=== PATIENT | male | born 1995 | race Caucasian/White ===

== ENCOUNTER 2017-11-24 03:14 | Outpatient (RCR) | payer OTHER, SELFPAY ==
[2017-11-25] MEDS: Normal Saline Flush 10 ML SYR IVP (13:42)
[2017-11-25] MEDS: Heparin 500 UNITS/5 ML SYRINGE IV (13:42)
[2017-11-25 14:02] LABS: Abs Immature Grans 0.01 k/cumm (0.0-0.09); Absolute Basophil Count 0.01 k/cumm (0.0-0.2); Absolute Eosinophil Count 0.09 k/cumm (0.0-0.7); Absolute Lymphocyte Count 1.13 k/cumm (1.2-3.4); Absolute Monocyte Count 1.58 k/cumm (0.11-0.7); Absolute Neutrophil Count 2.09 k/cumm (1.2-6.7); Basophils % 0.2; Eosinophils % 1.8; HCT 32.2 % (40.0-50.0); HGB 10.9 g/dL (13.5-17.5); Immature Grans % 0.2; Mean Corp. HGB Concentration 33.9 g/dL (32.0-36.0); Mean Corpuscular Hemoglobin 32.8 pg (27.0-33.0); Monocytes % 32.2; Neutrophils % 42.6; RBC 3.32 m/cumm (4.50-6.00); RBC Distribution Width 22.9 % (11.8-14.1); White Blood Cell Count 4.91 k/cumm (4.4-10.8)
[2017-11-25 14:43] LABS: Platelet Count 80 x1000/uL (130-400)
[2017-11-25 14:44] LABS: Anisocytosis 2+; Diff Comment Agrees w/ Instrument; Macrocytosis 1+; Microcytosis 1+
[2017-11-25 14:45] LABS: Poikilocytes 1+
[2017-11-30] MEDS: Normal Saline Flush 10 ML SYR IVP (10:10)
[2017-11-30] MEDS: Heparin 500 UNITS/5 ML SYRINGE IV (10:21)
[2017-11-30 10:34] LABS: Abs Immature Grans 0.01 k/cumm (0.0-0.09); Absolute Basophil Count 0.01 k/cumm (0.0-0.2); Absolute Eosinophil Count 0.09 k/cumm (0.0-0.7); Absolute Lymphocyte Count 0.86 k/cumm (1.2-3.4); Absolute Monocyte Count 0.84 k/cumm (0.11-0.7); Absolute Neutrophil Count 2.25 k/cumm (1.2-6.7); Basophils % 0.2; Eosinophils % 2.2; HCT 35.5 % (40.0-50.0); HGB 12.1 g/dL (13.5-17.5); Immature Grans % 0.2; Lymphocytes % 21.2; Mean Corp. HGB Concentration 34.1 g/dL (32.0-36.0); Mean Corpuscular Hemoglobin 33.2 pg (27.0-33.0); Mean Corpuscular Volume 97.5 fL (80-95); Mean Platelet Volume 9.5 fL (8.0-11.0); Monocytes % 20.7; Neutrophils % 55.5; RBC 3.64 m/cumm (4.50-6.00); White Blood Cell Count 4.06 k/cumm (4.4-10.8)
[2017-11-30 10:57] LABS: Anisocytosis 3+; Basophilic Stippling Present; Diff Comment RBC Morph Reviewed; Microcytosis 2+; Platelet Count 113 x1000/uL (130-400); Poikilocytes 1+; Polychromasia Present
[2017-12-07 10:02] LABS: Abs Immature Grans 0.01 k/cumm (0.0-0.09); Absolute Basophil Count 0.01 k/cumm (0.0-0.2); Absolute Eosinophil Count 0.13 k/cumm (0.0-0.7); Absolute Lymphocyte Count 0.78 k/cumm (1.2-3.4); Absolute Monocyte Count 0.69 k/cumm (0.11-0.7); Absolute Neutrophil Count 2.65 k/cumm (1.2-6.7); Basophils % 0.2; HCT 36.5 % (40.0-50.0); HGB 12.4 g/dL (13.5-17.5); Immature Grans % 0.2; Lymphocytes % 18.3; Mean Corpuscular Hemoglobin 33.3 pg (27.0-33.0); Mean Corpuscular Volume 98.1 fL (80-95); Mean Platelet Volume 9.5 fL (8.0-11.0); Monocytes % 16.2; Neutrophils % 62.1; Platelet Count 130 x1000/uL (130-400); RBC 3.72 m/cumm (4.50-6.00); White Blood Cell Count 4.27 k/cumm (4.4-10.8)
[2017-12-07 10:15] LABS: ALT 32 U/L (12-78); AST 25 U/L (15-37); Albumin 3.9 g/dL (3.4-5.0); Alkaline Phosphatase 159 U/L (46-116); Anion Gap 7.8 mmol/L (3-11); BUN 9 mg/dL (7-18); Bilirubin, Total 0.9 mg/dL (0.2-1.0); CO2 29.2 mmol/L (21.0-32.0); CREATININE 0.83 mg/dL (0.70-1.30); Calcium 9.4 mg/dL (8.5-10.1); Chloride 104 mmol/L (98-107); Glucose 141 mg/dL (70-100); Potassium 3.7 mmol/L (3.5-5.1); Sodium 141 mmol/L (136-145); Total Protein 7.2 g/dL (6.4-8.2)
[2017-12-07 10:31] LABS: Anisocytosis 2+; Diff Comment RBC Morph Reviewed; Poikilocytes 1+; Polychromasia Present
[2017-12-12] MEDS: Normal Saline Flush 10 ML SYR IVP (11:10)
[2017-12-12] MEDS: Heparin 500 UNITS/5 ML SYRINGE IV (11:10)
[2017-12-12 11:24] LABS: Abs Immature Grans 0.01 k/cumm (0.0-0.09); Absolute Basophil Count 0.02 k/cumm (0.0-0.2); Absolute Eosinophil Count 0.14 k/cumm (0.0-0.7); Absolute Lymphocyte Count 1.06 k/cumm (1.2-3.4); Absolute Monocyte Count 0.56 k/cumm (0.11-0.7); Basophils % 0.5; Eosinophils % 3.6; HCT 38.9 % (40.0-50.0); HGB 13.2 g/dL (13.5-17.5); Immature Grans % 0.3; Lymphocytes % 27.2; Mean Corp. HGB Concentration 33.9 g/dL (32.0-36.0); Mean Corpuscular Hemoglobin 33.2 pg (27.0-33.0); Mean Corpuscular Volume 97.7 fL (80-95); Mean Platelet Volume 8.9 fL (8.0-11.0); Monocytes % 14.4; Platelet Count 136 x1000/uL (130-400); RBC 3.98 m/cumm (4.50-6.00); White Blood Cell Count 3.89 k/cumm (4.4-10.8)
[2017-12-12 11:38] LABS: ALT 34 U/L (12-78); AST 29 U/L (15-37); Alkaline Phosphatase 168 U/L (46-116); Anion Gap 7.6 mmol/L (3-11); BUN 13 mg/dL (7-18); CO2 28.4 mmol/L (21.0-32.0); CREATININE 0.82 mg/dL (0.70-1.30); Calcium 9.3 mg/dL (8.5-10.1); Chloride 102 mmol/L (98-107); Glucose 93 mg/dL (70-100); Potassium 3.9 mmol/L (3.5-5.1); Sodium 138 mmol/L (136-145); Total Protein 7.4 g/dL (6.4-8.2)
[2017-12-22] MEDS: Heparin 500 UNITS/5 ML SYRINGE IV (11:15)
[2017-12-22] MEDS: Normal Saline Flush 10 ML SYR IVP (11:15)
[2017-12-22 11:31] LABS: Abs Immature Grans 0.01 k/cumm (0.0-0.09); Absolute Basophil Count 0.01 k/cumm (0.0-0.2); Absolute Lymphocyte Count 1.23 k/cumm (1.2-3.4); Absolute Monocyte Count 0.99 k/cumm (0.11-0.7); Absolute Neutrophil Count 2.76 k/cumm (1.2-6.7); Basophils % 0.2; Eosinophils % 3.8; HCT 40.6 % (40.0-50.0); HGB 13.8 g/dL (13.5-17.5); Immature Grans % 0.2; Lymphocytes % 23.7; Mean Corpuscular Hemoglobin 33.2 pg (27.0-33.0); Mean Corpuscular Volume 97.6 fL (80-95); Neutrophils % 53.1; Platelet Count 127 x1000/uL (130-400); RBC 4.16 m/cumm (4.50-6.00); RBC Distribution Width 15.9 % (11.8-14.1)
[2017-12-22 11:48] LABS: ALT 35 U/L (12-78); AST 31 U/L (15-37); Albumin 3.8 g/dL (3.4-5.0); Alkaline Phosphatase 165 U/L (46-116); Anion Gap 7.9 mmol/L (3-11); BUN 9 mg/dL (7-18); Bilirubin, Total 0.8 mg/dL (0.2-1.0); CO2 27.1 mmol/L (21.0-32.0); CREATININE 0.88 mg/dL (0.70-1.30); Chloride 102 mmol/L (98-107); Glucose 110 mg/dL (70-100); Magnesium 1.6 mg/dL (1.8-2.4); Potassium 3.5 mmol/L (3.5-5.1); Sodium 137 mmol/L (136-145); Total Protein 7.2 g/dL (6.4-8.2)
== END 2017-12-23 ==
LOC: INF 11-25 00:25
PROVIDERS: PCP Pediatrics; Visit Provider Internal Medicine
DX: C91.01 Acute lymphoblastic leukemia, in remission (principal); Z45.2 Encounter for adjustment and management of vascular access device
CPT/HCPCS: 36591; 80053; 86850; 86900; 86901; 83735; 85025

== ENCOUNTER 2018-01-18 01:39 | Outpatient (RCR) | payer OTHER, SELFPAY ==
[2017-12-27] MEDS: Normal Saline Flush 10 ML SYR IVP (11:10)
[2017-12-27] MEDS: Heparin 500 UNITS/5 ML SYRINGE IV (11:10)
[2017-12-27 11:39] LABS: Absolute Basophil Count 0.01 k/cumm (0.0-0.2); Absolute Eosinophil Count 0.18 k/cumm (0.0-0.7); Absolute Monocyte Count 0.23 k/cumm (0.11-0.7); Absolute Neutrophil Count 1.72 k/cumm (1.2-6.7); Basophils % 0.3; Eosinophils % 5.6; HCT 40.2 % (40.0-50.0); HGB 13.9 g/dL (13.5-17.5); Mean Corp. HGB Concentration 34.6 g/dL (32.0-36.0); Mean Corpuscular Hemoglobin 32.6 pg (27.0-33.0); Mean Corpuscular Volume 94.4 fL (80-95); Mean Platelet Volume 9.1 fL (8.0-11.0); Monocytes % 7.1; Platelet Count 130 x1000/uL (130-400); RBC 4.26 m/cumm (4.50-6.00); RBC Distribution Width 14.7 % (11.8-14.1); White Blood Cell Count 3.24 k/cumm (4.4-10.8)
[2017-12-27 11:52] LABS: ALT 49 U/L (12-78); AST 38 U/L (15-37); Albumin 3.8 g/dL (3.4-5.0); Alkaline Phosphatase 155 U/L (46-116); BUN 14 mg/dL (7-18); CREATININE 0.89 mg/dL (0.70-1.30); Calcium 9.2 mg/dL (8.5-10.1); Chloride 102 mmol/L (98-107); Glucose 144 mg/dL (70-100); Magnesium 1.7 mg/dL (1.8-2.4); Potassium 3.6 mmol/L (3.5-5.1); Sodium 139 mmol/L (136-145)
[2017-12-30] MEDS: Heparin 500 UNITS/5 ML SYRINGE IV (11:10)
[2017-12-30] MEDS: Normal Saline Flush 10 ML SYR IVP (11:10)
[2017-12-30 11:36] LABS: Abs Immature Grans 0.01 k/cumm (0.0-0.09); Absolute Basophil Count 0.02 k/cumm (0.0-0.2); Absolute Eosinophil Count 0.15 k/cumm (0.0-0.7); Absolute Lymphocyte Count 0.94 k/cumm (1.2-3.4); Absolute Monocyte Count 0.56 k/cumm (0.11-0.7); Absolute Neutrophil Count 1.55 k/cumm (1.2-6.7); Basophils % 0.6; Eosinophils % 4.6; HCT 39.2 % (40.0-50.0); HGB 13.6 g/dL (13.5-17.5); Immature Grans % 0.3; Lymphocytes % 29.1; Mean Corp. HGB Concentration 34.7 g/dL (32.0-36.0); Mean Corpuscular Hemoglobin 32.7 pg (27.0-33.0); Mean Corpuscular Volume 94.2 fL (80-95); Mean Platelet Volume 9.3 fL (8.0-11.0); Monocytes % 17.3; Neutrophils % 48.1; RBC 4.16 m/cumm (4.50-6.00); RBC Distribution Width 14.3 % (11.8-14.1); White Blood Cell Count 3.23 k/cumm (4.4-10.8)
[2017-12-30 12:02] LABS: Diff Comment PLT Morph Reviewed; Platelet Count 95 x1000/uL (130-400); RBC Morphology Normal
[2018-01-04] MEDS: Normal Saline Flush 10 ML SYR IVP (11:10)
[2018-01-04] MEDS: Heparin 500 UNITS/5 ML SYRINGE IV (11:10)
[2018-01-04 11:34] LABS: Absolute Eosinophil Count 0.18 k/cumm (0.0-0.7); Absolute Lymphocyte Count 1.08 k/cumm (1.2-3.4); Absolute Monocyte Count 0.34 k/cumm (0.11-0.7); Absolute Neutrophil Count 2.47 k/cumm (1.2-6.7); Eosinophils % 4.4; HCT 39.2 % (40.0-50.0); HGB 13.9 g/dL (13.5-17.5); Lymphocytes % 26.5; Mean Corp. HGB Concentration 35.5 g/dL (32.0-36.0); Mean Corpuscular Volume 93.1 fL (80-95); Mean Platelet Volume 8.9 fL (8.0-11.0); Monocytes % 8.4; Neutrophils % 60.7; Platelet Count 105 x1000/uL (130-400); RBC 4.21 m/cumm (4.50-6.00); RBC Distribution Width 14.2 % (11.8-14.1); White Blood Cell Count 4.07 k/cumm (4.4-10.8)
[2018-01-04 11:46] LABS: ALT 66 U/L (12-78); AST 48 U/L (15-37); Albumin 3.9 g/dL (3.4-5.0); Alkaline Phosphatase 164 U/L (46-116); Anion Gap 8.8 mmol/L (3-11); BUN 11 mg/dL (7-18); CO2 27.2 mmol/L (21.0-32.0); CREATININE 0.85 mg/dL (0.70-1.30); Calcium 9.2 mg/dL (8.5-10.1); Chloride 103 mmol/L (98-107); Glucose 156 mg/dL (70-100); Magnesium 1.7 mg/dL (1.8-2.4); Potassium 3.7 mmol/L (3.5-5.1); Sodium 139 mmol/L (136-145); Total Protein 7.3 g/dL (6.4-8.2)
[2018-01-09] MEDS: Heparin 500 UNITS/5 ML SYRINGE IV (11:05)
[2018-01-09] MEDS: Normal Saline Flush 10 ML SYR IVP (11:05)
[2018-01-09 11:53] LABS: Absolute Basophil Count 0.01 k/cumm (0.0-0.2); Absolute Eosinophil Count 0.14 k/cumm (0.0-0.7); Absolute Lymphocyte Count 0.96 k/cumm (1.2-3.4); Absolute Monocyte Count 0.41 k/cumm (0.11-0.7); Absolute Neutrophil Count 2.05 k/cumm (1.2-6.7); Basophils % 0.3; Eosinophils % 3.9; HCT 35.1 % (40.0-50.0); Lymphocytes % 26.9; Mean Corp. HGB Concentration 34.2 g/dL (32.0-36.0); Mean Corpuscular Hemoglobin 32.2 pg (27.0-33.0); Mean Corpuscular Volume 94.1 fL (80-95); Mean Platelet Volume 8.7 fL (8.0-11.0); Monocytes % 11.5; Neutrophils % 57.4; RBC 3.73 m/cumm (4.50-6.00); RBC Distribution Width 13.8 % (11.8-14.1); White Blood Cell Count 3.57 k/cumm (4.4-10.8)
[2018-01-09 11:59] LABS: ALT 46 U/L (12-78); AST 28 U/L (15-37); Albumin 3.7 g/dL (3.4-5.0); Alkaline Phosphatase 159 U/L (46-116); Anion Gap 5.5 mmol/L (3-11); BUN 12 mg/dL (7-18); Bilirubin, Total 0.6 mg/dL (0.2-1.0); CO2 29.5 mmol/L (21.0-32.0); CREATININE 0.71 mg/dL (0.70-1.30); Calcium 8.9 mg/dL (8.5-10.1); Chloride 105 mmol/L (98-107); Glucose 111 mg/dL (70-100); Potassium 3.8 mmol/L (3.5-5.1); Sodium 140 mmol/L (136-145); Total Protein 6.6 g/dL (6.4-8.2)
[2018-01-09 12:04] LABS: Platelet Count 77 x1000/uL (130-400)
[2018-01-11] MEDS: Heparin 500 UNITS/5 ML SYRINGE IV (11:10)
[2018-01-11] MEDS: Normal Saline Flush 10 ML SYR IVP (11:10)
[2018-01-11 11:47] LABS: Abs Immature Grans 0.01 k/cumm (0.0-0.09); Absolute Eosinophil Count 0.13 k/cumm (0.0-0.7); Absolute Lymphocyte Count 0.94 k/cumm (1.2-3.4); Absolute Monocyte Count 0.42 k/cumm (0.11-0.7); Absolute Neutrophil Count 2.54 k/cumm (1.2-6.7); Eosinophils % 3.2; HCT 37.1 % (40.0-50.0); HGB 12.7 g/dL (13.5-17.5); Immature Grans % 0.2; Lymphocytes % 23.3; Mean Corp. HGB Concentration 34.2 g/dL (32.0-36.0); Mean Corpuscular Hemoglobin 32.4 pg (27.0-33.0); Mean Corpuscular Volume 94.6 fL (80-95); Mean Platelet Volume 9.7 fL (8.0-11.0); Monocytes % 10.4; Neutrophils % 62.9; RBC 3.92 m/cumm (4.50-6.00); White Blood Cell Count 4.04 k/cumm (4.4-10.8)
[2018-01-11 12:05] LABS: Platelet Count 90 x1000/uL (130-400)
[2018-01-11 12:12] LABS: Polychromasia Present; RBC Morphology Normal
[2018-01-11 16:42] LABS: ALT 44 U/L (12-78); AST 27 U/L (15-37); Albumin 3.9 g/dL (3.4-5.0); Alkaline Phosphatase 157 U/L (46-116); Anion Gap 10.5 mmol/L (3-11); BUN 10 mg/dL (7-18); Bilirubin, Total 0.5 mg/dL (0.2-1.0); CO2 27.5 mmol/L (21.0-32.0); CREATININE 0.77 mg/dL (0.70-1.30); Calcium 8.9 mg/dL (8.5-10.1); Chloride 104 mmol/L (98-107); Glucose 84 mg/dL (70-100); Potassium 3.7 mmol/L (3.5-5.1); Sodium 142 mmol/L (136-145); Total Protein 6.8 g/dL (6.4-8.2)
[2018-01-16] MEDS: Normal Saline Flush 10 ML SYR IVP (11:10)
[2018-01-16] MEDS: Heparin 500 UNITS/5 ML SYRINGE IV (11:10)
[2018-01-16 11:48] LABS: Absolute Basophil Count 0.01 k/cumm (0.0-0.2); Absolute Lymphocyte Count 0.98 k/cumm (1.2-3.4); Absolute Monocyte Count 0.31 k/cumm (0.11-0.7); Absolute Neutrophil Count 1.93 k/cumm (1.2-6.7); Basophils % 0.3; HCT 37.7 % (40.0-50.0); HGB 12.9 g/dL (13.5-17.5); Lymphocytes % 29.4; Mean Corp. HGB Concentration 34.2 g/dL (32.0-36.0); Mean Corpuscular Hemoglobin 32.4 pg (27.0-33.0); Mean Corpuscular Volume 94.7 fL (80-95); Mean Platelet Volume 9.6 fL (8.0-11.0); Monocytes % 9.3; RBC 3.98 m/cumm (4.50-6.00); RBC Distribution Width 13.8 % (11.8-14.1); White Blood Cell Count 3.33 k/cumm (4.4-10.8)
[2018-01-16 12:05] LABS: ALT 76 U/L (12-78); AST 38 U/L (15-37); Albumin 3.8 g/dL (3.4-5.0); Alkaline Phosphatase 164 U/L (46-116); Anion Gap 9.4 mmol/L (3-11); BUN 10 mg/dL (7-18); Bilirubin, Total 0.8 mg/dL (0.2-1.0); CO2 28.6 mmol/L (21.0-32.0); CREATININE 0.82 mg/dL (0.70-1.30); Calcium 9.2 mg/dL (8.5-10.1); Chloride 102 mmol/L (98-107); Glucose 153 mg/dL (70-100); Potassium 3.7 mmol/L (3.5-5.1); Sodium 140 mmol/L (136-145); Total Protein 6.8 g/dL (6.4-8.2)
[2018-01-16 12:15] LABS: Platelet Count 92 x1000/uL (130-400)
[2018-01-18] MEDS: Normal Saline Flush 10 ML SYR IVP (10:35)
[2018-01-18] MEDS: Heparin 500 UNITS/5 ML SYRINGE IV (10:35)
[2018-01-18 11:13] LABS: Absolute Lymphocyte Count 0.94 k/cumm (1.2-3.4); Absolute Monocyte Count 0.29 k/cumm (0.11-0.7); Absolute Neutrophil Count 1.64 k/cumm (1.2-6.7); Eosinophils % 3.4; HCT 37.1 % (40.0-50.0); HGB 12.8 g/dL (13.5-17.5); Lymphocytes % 31.6; Mean Corp. HGB Concentration 34.5 g/dL (32.0-36.0); Mean Corpuscular Hemoglobin 32.7 pg (27.0-33.0); Mean Corpuscular Volume 94.6 fL (80-95); Mean Platelet Volume 9.3 fL (8.0-11.0); Monocytes % 9.8; Neutrophils % 55.2; RBC 3.92 m/cumm (4.50-6.00); RBC Distribution Width 13.7 % (11.8-14.1); White Blood Cell Count 2.97 k/cumm (4.4-10.8)
[2018-01-18 11:25] LABS: ALT 62 U/L (12-78); AST 30 U/L (15-37); Albumin 3.8 g/dL (3.4-5.0); Alkaline Phosphatase 161 U/L (46-116); Anion Gap 7.5 mmol/L (3-11); BUN 13 mg/dL (7-18); Bilirubin, Total 0.7 mg/dL (0.2-1.0); CO2 29.5 mmol/L (21.0-32.0); CREATININE 0.79 mg/dL (0.70-1.30); Calcium 9.2 mg/dL (8.5-10.1); Chloride 104 mmol/L (98-107); Glucose 121 mg/dL (70-100); Potassium 3.7 mmol/L (3.5-5.1); Sodium 141 mmol/L (136-145); Total Protein 6.8 g/dL (6.4-8.2)
[2018-01-18 11:31] LABS: Diff Comment PLT Morph Reviewed; Platelet Count 84 x1000/uL (130-400); RBC Morphology Normal
== END 2018-01-22 23:59 | disposition home or self-care (01) ==
LOC: INF 01:39
PROVIDERS: PCP Pediatrics; Visit Provider Internal Medicine
DX: C91.00 Acute lymphoblastic leukemia not having achieved remission (principal); Z45.2 Encounter for adjustment and management of vascular access device
CPT/HCPCS: 36591; 80053; 86850; 86900; 86901; 83735; 85025

== ENCOUNTER 2018-02-15 01:40 | Outpatient (RCR) | payer OTHER, SELFPAY ==
[2018-01-30] MEDS: Heparin 500 UNITS/5 ML SYRINGE IV (10:50)
[2018-01-30] MEDS: Normal Saline Flush 10 ML SYR IVP (10:50)
[2018-01-30 11:18] LABS: Absolute Eosinophil Count 0.05 k/cumm (0.0-0.7); Absolute Lymphocyte Count 0.72 k/cumm (1.2-3.4); Absolute Monocyte Count 0.16 k/cumm (0.11-0.7); Absolute Neutrophil Count 1.96 k/cumm (1.2-6.7); Eosinophils % 1.7; HCT 37.1 % (40.0-50.0); Lymphocytes % 24.9; Mean Corpuscular Hemoglobin 33.2 pg (27.0-33.0); Mean Corpuscular Volume 94.9 fL (80-95); Monocytes % 5.5; Neutrophils % 67.9; Platelet Count 101 x1000/uL (130-400); RBC 3.91 m/cumm (4.50-6.00); RBC Distribution Width 13.4 % (11.8-14.1); White Blood Cell Count 2.89 k/cumm (4.4-10.8)
[2018-01-30 11:41] LABS: ALT 123 U/L (12-78); AST 58 U/L (15-37); Albumin 3.7 g/dL (3.4-5.0); Alkaline Phosphatase 147 U/L (46-116); Anion Gap 5.5 mmol/L (3-11); BUN 14 mg/dL (7-18); Bilirubin, Total 0.8 mg/dL (0.2-1.0); CO2 28.5 mmol/L (21.0-32.0); CREATININE 0.81 mg/dL (0.70-1.30); Calcium 8.9 mg/dL (8.5-10.1); Chloride 101 mmol/L (98-107); Glucose 187 mg/dL (70-100); Potassium 3.8 mmol/L (3.5-5.1); Sodium 135 mmol/L (136-145); Total Protein 6.9 g/dL (6.4-8.2)
[2018-02-09] MEDS: Heparin 500 UNITS/5 ML SYRINGE IV (11:10)
[2018-02-09] MEDS: Normal Saline Flush 10 ML SYR IVP (11:10)
[2018-02-09 11:32] LABS: Absolute Eosinophil Count 0.06 k/cumm (0.0-0.7); Absolute Lymphocyte Count 0.96 k/cumm (1.2-3.4); Absolute Monocyte Count 0.34 k/cumm (0.11-0.7); Absolute Neutrophil Count 2.66 k/cumm (1.2-6.7); Eosinophils % 1.5; HCT 37.6 % (40.0-50.0); Lymphocytes % 23.9; Mean Corp. HGB Concentration 34.6 g/dL (32.0-36.0); Mean Corpuscular Hemoglobin 32.3 pg (27.0-33.0); Mean Corpuscular Volume 93.3 fL (80-95); Mean Platelet Volume 9.3 fL (8.0-11.0); Monocytes % 8.5; Neutrophils % 66.1; RBC 4.03 m/cumm (4.50-6.00); RBC Distribution Width 13.7 % (11.8-14.1); White Blood Cell Count 4.02 k/cumm (4.4-10.8)
[2018-02-09 11:44] LABS: Diff Comment PLT Morph Reviewed; Platelet Count 57 x1000/uL (130-400); Polychromasia Present
[2018-02-09 11:45] LABS: ALT 91 U/L (12-78); AST 25 U/L (15-37); Albumin 3.8 g/dL (3.4-5.0); Alkaline Phosphatase 148 U/L (46-116); Anion Gap 9.1 mmol/L (3-11); BUN 12 mg/dL (7-18); Bilirubin, Total 0.5 mg/dL (0.2-1.0); CO2 28.9 mmol/L (21.0-32.0); CREATININE 0.86 mg/dL (0.70-1.30); Calcium 9.2 mg/dL (8.5-10.1); Chloride 104 mmol/L (98-107); Glucose 128 mg/dL (70-100); Magnesium 1.9 mg/dL (1.8-2.4); Potassium 3.7 mmol/L (3.5-5.1); Sodium 142 mmol/L (136-145); Total Protein 6.7 g/dL (6.4-8.2)
[2018-02-15] MEDS: Normal Saline Flush 10 ML SYR IVP (10:10)
[2018-02-15] MEDS: Heparin 500 UNITS/5 ML SYRINGE IV (11:10)
[2018-02-15 11:38] LABS: Absolute Basophil Count 0.01 k/cumm (0.0-0.2); Absolute Eosinophil Count 0.07 k/cumm (0.0-0.7); Absolute Lymphocyte Count 1.13 k/cumm (1.2-3.4); Absolute Monocyte Count 0.55 k/cumm (0.11-0.7); Absolute Neutrophil Count 1.53 k/cumm (1.2-6.7); Basophils % 0.3; Eosinophils % 2.1; HCT 40.8 % (40.0-50.0); Lymphocytes % 34.3; Mean Corp. HGB Concentration 34.3 g/dL (32.0-36.0); Mean Corpuscular Hemoglobin 33.2 pg (27.0-33.0); Mean Corpuscular Volume 96.7 fL (80-95); Mean Platelet Volume 8.9 fL (8.0-11.0); Monocytes % 16.7; Neutrophils % 46.6; Platelet Count 143 x1000/uL (130-400); RBC 4.22 m/cumm (4.50-6.00); RBC Distribution Width 14.6 % (11.8-14.1); White Blood Cell Count 3.29 k/cumm (4.4-10.8)
[2018-02-15 11:51] LABS: ALT 45 U/L (12-78); AST 21 U/L (15-37); Albumin 3.9 g/dL (3.4-5.0); Alkaline Phosphatase 146 U/L (46-116); Anion Gap 7.6 mmol/L (3-11); BUN 13 mg/dL (7-18); Bilirubin, Total 0.4 mg/dL (0.2-1.0); CO2 30.4 mmol/L (21.0-32.0); CREATININE 0.82 mg/dL (0.70-1.30); Calcium 9.4 mg/dL (8.5-10.1); Chloride 103 mmol/L (98-107); Glucose 138 mg/dL (70-100); Potassium 3.8 mmol/L (3.5-5.1); Sodium 141 mmol/L (136-145); Total Protein 6.9 g/dL (6.4-8.2)
== END 2018-02-22 23:59 | disposition home or self-care (01) ==
LOC: INF 01:40
PROVIDERS: PCP Pediatrics; Visit Provider Internal Medicine
DX: C91.01 Acute lymphoblastic leukemia, in remission (principal); Z45.2 Encounter for adjustment and management of vascular access device
CPT/HCPCS: 36591; 80053; 86900; 86901; 83735; 85025

== ENCOUNTER 2018-03-24 00:52 | Outpatient (RCR) | payer OTHER, SELFPAY ==
[2018-02-28] MEDS: Normal Saline Flush 10 ML SYR IVP (11:45)
[2018-02-28] MEDS: Heparin 500 UNITS/5 ML SYRINGE IV (11:45)
[2018-02-28 12:07] LABS: Abs Immature Grans 0.01 k/cumm (0.0-0.09); Absolute Basophil Count 0.01 k/cumm (0.0-0.2); Absolute Eosinophil Count 0.09 k/cumm (0.0-0.7); Absolute Monocyte Count 0.35 k/cumm (0.11-0.7); Absolute Neutrophil Count 2.63 k/cumm (1.2-6.7); Basophils % 0.2; Eosinophils % 2.1; HCT 41.2 % (40.0-50.0); HGB 14.4 g/dL (13.5-17.5); Immature Grans % 0.2; Lymphocytes % 29.6; Mean Corpuscular Hemoglobin 33.2 pg (27.0-33.0); Mean Corpuscular Volume 94.9 fL (80-95); Mean Platelet Volume 8.7 fL (8.0-11.0); Neutrophils % 59.9; Platelet Count 154 x1000/uL (130-400); RBC 4.34 m/cumm (4.50-6.00); RBC Distribution Width 13.9 % (11.8-14.1); White Blood Cell Count 4.39 k/cumm (4.4-10.8)
[2018-02-28 12:19] LABS: ALT 56 U/L (12-78); AST 31 U/L (15-37); Alkaline Phosphatase 136 U/L (46-116); Anion Gap 8.1 mmol/L (3-11); BUN 12 mg/dL (7-18); Bilirubin, Total 0.7 mg/dL (0.2-1.0); CO2 28.9 mmol/L (21.0-32.0); CREATININE 0.85 mg/dL (0.70-1.30); Calcium 9.3 mg/dL (8.5-10.1); Chloride 100 mmol/L (98-107); Glucose 131 mg/dL (70-100); Potassium 3.8 mmol/L (3.5-5.1); Sodium 137 mmol/L (136-145); Total Protein 6.8 g/dL (6.4-8.2)
[2018-03-03 12:20] LABS: Absolute Basophil Count 0.01 k/cumm (0.0-0.2); Absolute Eosinophil Count 0.04 k/cumm (0.0-0.7); Absolute Lymphocyte Count 1.17 k/cumm (1.2-3.4); Absolute Monocyte Count 0.59 k/cumm (0.11-0.7); Absolute Neutrophil Count 2.43 k/cumm (1.2-6.7); Basophils % 0.2; Eosinophils % 0.9; HCT 39.8 % (40.0-50.0); HGB 13.8 g/dL (13.5-17.5); Lymphocytes % 27.6; Mean Corp. HGB Concentration 34.7 g/dL (32.0-36.0); Mean Corpuscular Hemoglobin 33.2 pg (27.0-33.0); Mean Corpuscular Volume 95.7 fL (80-95); Mean Platelet Volume 8.8 fL (8.0-11.0); Monocytes % 13.9; Neutrophils % 57.4; Platelet Count 147 x1000/uL (130-400); RBC 4.16 m/cumm (4.50-6.00); White Blood Cell Count 4.24 k/cumm (4.4-10.8)
[2018-03-03 12:31] LABS: ALT 53 U/L (12-78); AST 25 U/L (15-37); Albumin 3.8 g/dL (3.4-5.0); Alkaline Phosphatase 127 U/L (46-116); BUN 13 mg/dL (7-18); Bilirubin, Total 0.6 mg/dL (0.2-1.0); CREATININE 0.78 mg/dL (0.70-1.30); Calcium 9.2 mg/dL (8.5-10.1); Chloride 101 mmol/L (98-107); Glucose 111 mg/dL (70-100); Potassium 3.8 mmol/L (3.5-5.1); Sodium 138 mmol/L (136-145); Total Protein 6.5 g/dL (6.4-8.2)
[2018-03-08] MEDS: Heparin 500 UNITS/5 ML SYRINGE IV (11:10)
[2018-03-08] MEDS: Normal Saline Flush 10 ML SYR IVP (11:10)
[2018-03-08 11:33] LABS: Absolute Basophil Count 0.01 k/cumm (0.0-0.2); Absolute Eosinophil Count 0.03 k/cumm (0.0-0.7); Absolute Lymphocyte Count 0.96 k/cumm (1.2-3.4); Absolute Neutrophil Count 4.65 k/cumm (1.2-6.7); Basophils % 0.2; Eosinophils % 0.5; HCT 39.7 % (40.0-50.0); HGB 13.6 g/dL (13.5-17.5); Lymphocytes % 15.4; Mean Corp. HGB Concentration 34.3 g/dL (32.0-36.0); Mean Corpuscular Hemoglobin 32.7 pg (27.0-33.0); Mean Corpuscular Volume 95.4 fL (80-95); Mean Platelet Volume 8.6 fL (8.0-11.0); Monocytes % 9.6; Neutrophils % 74.3; Platelet Count 146 x1000/uL (130-400); RBC 4.16 m/cumm (4.50-6.00); RBC Distribution Width 14.1 % (11.8-14.1); White Blood Cell Count 6.25 k/cumm (4.4-10.8)
[2018-03-08 11:44] LABS: ALT 43 U/L (12-78); AST 24 U/L (15-37); Albumin 3.9 g/dL (3.4-5.0); Alkaline Phosphatase 122 U/L (46-116); Anion Gap 6.4 mmol/L (3-11); BUN 11 mg/dL (7-18); Bilirubin, Total 0.7 mg/dL (0.2-1.0); CO2 29.6 mmol/L (21.0-32.0); CREATININE 0.77 mg/dL (0.70-1.30); Chloride 103 mmol/L (98-107); Glucose 95 mg/dL (70-100); Potassium 3.8 mmol/L (3.5-5.1); Sodium 139 mmol/L (136-145); Total Protein 6.6 g/dL (6.4-8.2)
[2018-03-13] MEDS: Normal Saline Flush 10 ML SYR IVP (11:05)
[2018-03-13] MEDS: Heparin 500 UNITS/5 ML SYRINGE IV (11:05)
[2018-03-13 11:37] LABS: Absolute Basophil Count 0.01 k/cumm (0.0-0.2); Absolute Eosinophil Count 0.06 k/cumm (0.0-0.7); Absolute Lymphocyte Count 1.13 k/cumm (1.2-3.4); Absolute Monocyte Count 0.49 k/cumm (0.11-0.7); Basophils % 0.3; Eosinophils % 1.6; HCT 40.1 % (40.0-50.0); HGB 13.6 g/dL (13.5-17.5); Lymphocytes % 29.8; Mean Corp. HGB Concentration 33.9 g/dL (32.0-36.0); Mean Corpuscular Hemoglobin 32.5 pg (27.0-33.0); Mean Corpuscular Volume 95.7 fL (80-95); Mean Platelet Volume 8.6 fL (8.0-11.0); Monocytes % 12.9; Neutrophils % 55.4; Platelet Count 163 x1000/uL (130-400); RBC 4.19 m/cumm (4.50-6.00); RBC Distribution Width 14.3 % (11.8-14.1); White Blood Cell Count 3.79 k/cumm (4.4-10.8)
[2018-03-13 11:48] LABS: ALT 32 U/L (12-78); AST 20 U/L (15-37); Alkaline Phosphatase 126 U/L (46-116); BUN 12 mg/dL (7-18); Bilirubin, Total 0.8 mg/dL (0.2-1.0); CREATININE 0.83 mg/dL (0.70-1.30); Calcium 9.2 mg/dL (8.5-10.1); Chloride 103 mmol/L (98-107); Glucose 109 mg/dL (70-100); Potassium 3.8 mmol/L (3.5-5.1); Sodium 140 mmol/L (136-145); Total Protein 6.7 g/dL (6.4-8.2)
[2018-03-17] MEDS: Normal Saline Flush 10 ML SYR IVP (11:23)
[2018-03-17 11:33] LABS: Absolute Basophil Count 0.01 k/cumm (0.0-0.2); Absolute Eosinophil Count 0.07 k/cumm (0.0-0.7); Absolute Lymphocyte Count 1.04 k/cumm (1.2-3.4); Absolute Monocyte Count 0.41 k/cumm (0.11-0.7); Absolute Neutrophil Count 2.33 k/cumm (1.2-6.7); Basophils % 0.3; Eosinophils % 1.8; HCT 40.6 % (40.0-50.0); Lymphocytes % 26.9; Mean Corp. HGB Concentration 34.5 g/dL (32.0-36.0); Mean Corpuscular Hemoglobin 32.7 pg (27.0-33.0); Mean Corpuscular Volume 94.9 fL (80-95); Mean Platelet Volume 8.5 fL (8.0-11.0); Monocytes % 10.6; Neutrophils % 60.4; Platelet Count 172 x1000/uL (130-400); RBC 4.28 m/cumm (4.50-6.00); RBC Distribution Width 14.1 % (11.8-14.1); White Blood Cell Count 3.86 k/cumm (4.4-10.8)
[2018-03-17] MEDS: Heparin 500 UNITS/5 ML SYRINGE IV (11:37)
[2018-03-17 11:53] LABS: ALT 34 U/L (12-78); AST 21 U/L (15-37); Alkaline Phosphatase 128 U/L (46-116); Anion Gap 8.7 mmol/L (3-11); BUN 11 mg/dL (7-18); Bilirubin, Total 0.9 mg/dL (0.2-1.0); CO2 29.3 mmol/L (21.0-32.0); CREATININE 0.85 mg/dL (0.70-1.30); Calcium 9.3 mg/dL (8.5-10.1); Chloride 102 mmol/L (98-107); Glucose 127 mg/dL (70-100); Potassium 3.8 mmol/L (3.5-5.1); Sodium 140 mmol/L (136-145); Total Protein 6.9 g/dL (6.4-8.2)
[2018-03-24] MEDS: Normal Saline Flush 10 ML SYR IVP (11:20)
[2018-03-24] MEDS: Heparin 500 UNITS/5 ML SYRINGE IV (11:21)
[2018-03-24 11:42] LABS: Abs Immature Grans 0.01 k/cumm (0.0-0.09); Absolute Basophil Count 0.01 k/cumm (0.0-0.2); Absolute Eosinophil Count 0.03 k/cumm (0.0-0.7); Absolute Lymphocyte Count 1.84 k/cumm (1.2-3.4); Absolute Monocyte Count 0.39 k/cumm (0.11-0.7); Absolute Neutrophil Count 3.84 k/cumm (1.2-6.7); Basophils % 0.2; Eosinophils % 0.5; HCT 41.5 % (40.0-50.0); HGB 14.3 g/dL (13.5-17.5); Immature Grans % 0.2; Lymphocytes % 30.1; Mean Corp. HGB Concentration 34.5 g/dL (32.0-36.0); Mean Corpuscular Hemoglobin 32.8 pg (27.0-33.0); Mean Corpuscular Volume 95.2 fL (80-95); Mean Platelet Volume 8.8 fL (8.0-11.0); Monocytes % 6.4; Neutrophils % 62.6; Platelet Count 187 x1000/uL (130-400); RBC 4.36 m/cumm (4.50-6.00); RBC Distribution Width 14.4 % (11.8-14.1); White Blood Cell Count 6.12 k/cumm (4.4-10.8)
[2018-03-24 11:58] LABS: ALT 49 U/L (12-78); AST 26 U/L (15-37); Alkaline Phosphatase 129 U/L (46-116); Anion Gap 9.5 mmol/L (3-11); BUN 15 mg/dL (7-18); Bilirubin, Total 0.6 mg/dL (0.2-1.0); CO2 28.5 mmol/L (21.0-32.0); CREATININE 0.77 mg/dL (0.70-1.30); Calcium 9.3 mg/dL (8.5-10.1); Chloride 104 mmol/L (98-107); Glucose 98 mg/dL (70-100); Potassium 3.3 mmol/L (3.5-5.1); Sodium 142 mmol/L (136-145); Total Protein 6.8 g/dL (6.4-8.2)
== END 2018-03-24 23:59 | disposition home or self-care (01) ==
LOC: INF 00:52
PROVIDERS: PCP Pediatrics; Visit Provider Internal Medicine
DX: C91.01 Acute lymphoblastic leukemia, in remission (principal); Z45.2 Encounter for adjustment and management of vascular access device
CPT/HCPCS: 36591; 80053; 86900; 86901; 85025

== ENCOUNTER 2018-04-24 10:00 | Outpatient (RCR) | payer OTHER, SELFPAY ==
[2018-03-27] MEDS: Heparin 500 UNITS/5 ML SYRINGE IV (11:40)
[2018-03-27] MEDS: Normal Saline Flush 10 ML SYR IVP (11:40)
[2018-03-27 11:43] LABS: Abs Immature Grans 0.01 k/cumm (0.0-0.09); Absolute Basophil Count 0.01 k/cumm (0.0-0.2); Absolute Eosinophil Count 0.18 k/cumm (0.0-0.7); Absolute Lymphocyte Count 1.27 k/cumm (1.2-3.4); Absolute Monocyte Count 0.56 k/cumm (0.11-0.7); Absolute Neutrophil Count 4.34 k/cumm (1.2-6.7); Basophils % 0.2; Eosinophils % 2.8; HCT 42.3 % (40.0-50.0); HGB 14.6 g/dL (13.5-17.5); Immature Grans % 0.2; Lymphocytes % 19.9; Mean Corp. HGB Concentration 34.5 g/dL (32.0-36.0); Mean Corpuscular Hemoglobin 32.6 pg (27.0-33.0); Mean Corpuscular Volume 94.4 fL (80-95); Mean Platelet Volume 8.5 fL (8.0-11.0); Monocytes % 8.8; Neutrophils % 68.1; Platelet Count 163 x1000/uL (130-400); RBC 4.48 m/cumm (4.50-6.00); RBC Distribution Width 14.3 % (11.8-14.1); White Blood Cell Count 6.37 k/cumm (4.4-10.8)
[2018-03-27 12:02] LABS: ALT 49 U/L (12-78); AST 22 U/L (15-37); Albumin 4.1 g/dL (3.4-5.0); Alkaline Phosphatase 130 U/L (46-116); BUN 12 mg/dL (7-18); Bilirubin, Total 0.9 mg/dL (0.2-1.0); CREATININE 0.77 mg/dL (0.70-1.30); Calcium 9.4 mg/dL (8.5-10.1); Chloride 102 mmol/L (98-107); Glucose 124 mg/dL (70-100); Potassium 3.9 mmol/L (3.5-5.1); Sodium 140 mmol/L (136-145); Total Protein 6.9 g/dL (6.4-8.2)
[2018-03-31] MEDS: Normal Saline Flush 10 ML SYR IVP (11:27)
[2018-03-31] MEDS: Heparin 500 UNITS/5 ML SYRINGE IV (11:27)
[2018-03-31 11:47] LABS: Abs Immature Grans 0.01 k/cumm (0.0-0.09); Absolute Basophil Count 0.01 k/cumm (0.0-0.2); Absolute Eosinophil Count 0.11 k/cumm (0.0-0.7); Absolute Lymphocyte Count 0.99 k/cumm (1.2-3.4); Absolute Monocyte Count 0.55 k/cumm (0.11-0.7); Absolute Neutrophil Count 2.78 k/cumm (1.2-6.7); Basophils % 0.2; Eosinophils % 2.5; HCT 41.5 % (40.0-50.0); HGB 14.3 g/dL (13.5-17.5); Immature Grans % 0.2; Lymphocytes % 22.2; Mean Corp. HGB Concentration 34.5 g/dL (32.0-36.0); Mean Corpuscular Hemoglobin 32.5 pg (27.0-33.0); Mean Corpuscular Volume 94.3 fL (80-95); Mean Platelet Volume 8.6 fL (8.0-11.0); Monocytes % 12.4; Neutrophils % 62.5; Platelet Count 144 x1000/uL (130-400); RBC Distribution Width 14.2 % (11.8-14.1); White Blood Cell Count 4.45 k/cumm (4.4-10.8)
[2018-03-31 12:07] LABS: ALT 51 U/L (12-78); AST 24 U/L (15-37); Alkaline Phosphatase 126 U/L (46-116); Anion Gap 11.3 mmol/L (3-11); BUN 11 mg/dL (7-18); Bilirubin, Total 0.8 mg/dL (0.2-1.0); CO2 27.7 mmol/L (21.0-32.0); CREATININE 0.83 mg/dL (0.70-1.30); Calcium 9.2 mg/dL (8.5-10.1); Chloride 102 mmol/L (98-107); Glucose 110 mg/dL (70-100); Potassium 3.8 mmol/L (3.5-5.1); Sodium 141 mmol/L (136-145); Total Protein 6.8 g/dL (6.4-8.2)
[2018-04-03] MEDS: Normal Saline Flush 10 ML SYR IVP (08:34)
[2018-04-03] MEDS: Heparin 500 UNITS/5 ML SYRINGE IV (08:34)
[2018-04-03 08:53] LABS: Abs Immature Grans 0.01 k/cumm (0.0-0.09); Absolute Basophil Count 0.01 k/cumm (0.0-0.2); Absolute Eosinophil Count 0.12 k/cumm (0.0-0.7); Absolute Lymphocyte Count 1.21 k/cumm (1.2-3.4); Absolute Monocyte Count 0.86 k/cumm (0.11-0.7); Absolute Neutrophil Count 4.15 k/cumm (1.2-6.7); Basophils % 0.2; Eosinophils % 1.9; HCT 40.1 % (40.0-50.0); Immature Grans % 0.2; Mean Corp. HGB Concentration 34.9 g/dL (32.0-36.0); Mean Corpuscular Hemoglobin 32.8 pg (27.0-33.0); Mean Corpuscular Volume 93.9 fL (80-95); Mean Platelet Volume 8.4 fL (8.0-11.0); Monocytes % 13.5; Neutrophils % 65.2; Platelet Count 151 x1000/uL (130-400); RBC 4.27 m/cumm (4.50-6.00); RBC Distribution Width 13.9 % (11.8-14.1); White Blood Cell Count 6.36 k/cumm (4.4-10.8)
[2018-04-03 09:04] LABS: ALT 41 U/L (12-78); AST 23 U/L (15-37); Albumin 3.9 g/dL (3.4-5.0); Alkaline Phosphatase 136 U/L (46-116); Anion Gap 10.2 mmol/L (3-11); BUN 16 mg/dL (7-18); Bilirubin, Total 0.6 mg/dL (0.2-1.0); CO2 29.8 mmol/L (21.0-32.0); CREATININE 0.92 mg/dL (0.70-1.30); Calcium 8.9 mg/dL (8.5-10.1); Chloride 102 mmol/L (98-107); Glucose 88 mg/dL (70-100); Potassium 3.9 mmol/L (3.5-5.1); Sodium 142 mmol/L (136-145); Total Protein 6.6 g/dL (6.4-8.2)
[2018-04-07] MEDS: Heparin 500 UNITS/5 ML SYRINGE IV (16:59)
[2018-04-07] MEDS: Normal Saline Flush 10 ML SYR IVP (16:59)
[2018-04-07 17:11] LABS: Abs Immature Grans 0.01 k/cumm (0.0-0.09); Absolute Eosinophil Count 0.07 k/cumm (0.0-0.7); Absolute Lymphocyte Count 1.28 k/cumm (1.2-3.4); Absolute Monocyte Count 0.73 k/cumm (0.11-0.7); Absolute Neutrophil Count 2.56 k/cumm (1.2-6.7); Eosinophils % 1.5; HCT 38.2 % (40.0-50.0); HGB 13.4 g/dL (13.5-17.5); Immature Grans % 0.2; Lymphocytes % 27.5; Mean Corp. HGB Concentration 35.1 g/dL (32.0-36.0); Mean Corpuscular Hemoglobin 33.2 pg (27.0-33.0); Mean Corpuscular Volume 94.6 fL (80-95); Mean Platelet Volume 8.4 fL (8.0-11.0); Monocytes % 15.7; Neutrophils % 55.1; Platelet Count 153 x1000/uL (130-400); RBC 4.04 m/cumm (4.50-6.00); RBC Distribution Width 13.9 % (11.8-14.1); White Blood Cell Count 4.65 k/cumm (4.4-10.8)
[2018-04-07 17:23] LABS: ALT 37 U/L (12-78); AST 21 U/L (15-37); Alkaline Phosphatase 119 U/L (46-116); Anion Gap 7.1 mmol/L (3-11); BUN 10 mg/dL (7-18); Bilirubin, Total 0.7 mg/dL (0.2-1.0); CO2 30.9 mmol/L (21.0-32.0); CREATININE 0.78 mg/dL (0.70-1.30); Calcium 8.9 mg/dL (8.5-10.1); Chloride 103 mmol/L (98-107); Glucose 111 mg/dL (70-100); Potassium 3.5 mmol/L (3.5-5.1); Sodium 141 mmol/L (136-145); Total Protein 6.6 g/dL (6.4-8.2)
[2018-04-10] MEDS: Normal Saline Flush 10 ML SYR IVP (12:50)
[2018-04-10] MEDS: Heparin 500 UNITS/5 ML SYRINGE IV (12:51)
[2018-04-10 13:01] LABS: Absolute Eosinophil Count 0.12 k/cumm (0.0-0.7); Absolute Lymphocyte Count 1.03 k/cumm (1.2-3.4); Absolute Monocyte Count 0.65 k/cumm (0.11-0.7); Absolute Neutrophil Count 3.14 k/cumm (1.2-6.7); Eosinophils % 2.4; HCT 40.4 % (40.0-50.0); HGB 14.1 g/dL (13.5-17.5); Lymphocytes % 20.9; Mean Corp. HGB Concentration 34.9 g/dL (32.0-36.0); Mean Corpuscular Hemoglobin 32.8 pg (27.0-33.0); Mean Platelet Volume 8.7 fL (8.0-11.0); Monocytes % 13.2; Neutrophils % 63.5; Platelet Count 150 x1000/uL (130-400); RBC Distribution Width 13.7 % (11.8-14.1); White Blood Cell Count 4.94 k/cumm (4.4-10.8)
[2018-04-10 13:11] LABS: ALT 34 U/L (12-78); AST 22 U/L (15-37); Albumin 3.9 g/dL (3.4-5.0); Alkaline Phosphatase 126 U/L (46-116); Anion Gap 7.8 mmol/L (3-11); BUN 13 mg/dL (7-18); Bilirubin, Total 0.8 mg/dL (0.2-1.0); CO2 31.2 mmol/L (21.0-32.0); CREATININE 0.81 mg/dL (0.70-1.30); Calcium 9.3 mg/dL (8.5-10.1); Chloride 101 mmol/L (98-107); Glucose 129 mg/dL (70-100); Potassium 3.7 mmol/L (3.5-5.1); Sodium 140 mmol/L (136-145); Total Protein 6.8 g/dL (6.4-8.2)
[2018-04-13 11:39] LABS: Absolute Basophil Count 0.01 k/cumm (0.0-0.2); Absolute Eosinophil Count 0.11 k/cumm (0.0-0.7); Absolute Lymphocyte Count 1.05 k/cumm (1.2-3.4); Absolute Monocyte Count 0.46 k/cumm (0.11-0.7); Absolute Neutrophil Count 2.33 k/cumm (1.2-6.7); Basophils % 0.3; Eosinophils % 2.8; HCT 40.1 % (40.0-50.0); HGB 13.9 g/dL (13.5-17.5); Lymphocytes % 26.5; Mean Corp. HGB Concentration 34.7 g/dL (32.0-36.0); Mean Corpuscular Hemoglobin 32.6 pg (27.0-33.0); Mean Corpuscular Volume 93.9 fL (80-95); Mean Platelet Volume 8.7 fL (8.0-11.0); Monocytes % 11.6; Neutrophils % 58.8; Platelet Count 149 x1000/uL (130-400); RBC 4.27 m/cumm (4.50-6.00); RBC Distribution Width 13.7 % (11.8-14.1); White Blood Cell Count 3.96 k/cumm (4.4-10.8)
[2018-04-13] MEDS: Normal Saline Flush 10 ML SYR IVP (11:40)
[2018-04-13] MEDS: Heparin 500 UNITS/5 ML SYRINGE IV (11:40)
[2018-04-13 11:51] LABS: ALT 34 U/L (12-78); AST 24 U/L (15-37); Albumin 3.9 g/dL (3.4-5.0); Alkaline Phosphatase 125 U/L (46-116); Anion Gap 8.2 mmol/L (3-11); BUN 12 mg/dL (7-18); Bilirubin, Total 0.8 mg/dL (0.2-1.0); CO2 30.8 mmol/L (21.0-32.0); CREATININE 0.85 mg/dL (0.70-1.30); Calcium 9.4 mg/dL (8.5-10.1); Chloride 100 mmol/L (98-107); Glucose 146 mg/dL (70-100); Potassium 3.6 mmol/L (3.5-5.1); Sodium 139 mmol/L (136-145); Total Protein 6.8 g/dL (6.4-8.2)
[2018-04-17] MEDS: Normal Saline Flush 10 ML SYR IVP (10:13)
[2018-04-17 10:47] LABS: Absolute Basophil Count 0.01 k/cumm (0.0-0.2); Absolute Eosinophil Count 0.12 k/cumm (0.0-0.7); Absolute Lymphocyte Count 0.99 k/cumm (1.2-3.4); Absolute Monocyte Count 0.55 k/cumm (0.11-0.7); Absolute Neutrophil Count 3.05 k/cumm (1.2-6.7); Basophils % 0.2; Eosinophils % 2.5; HCT 39.2 % (40.0-50.0); HGB 13.8 g/dL (13.5-17.5); Mean Corp. HGB Concentration 35.2 g/dL (32.0-36.0); Mean Corpuscular Hemoglobin 33.1 pg (27.0-33.0); Monocytes % 11.7; Neutrophils % 64.6; Platelet Count 157 x1000/uL (130-400); RBC 4.17 m/cumm (4.50-6.00); RBC Distribution Width 13.7 % (11.8-14.1); White Blood Cell Count 4.72 k/cumm (4.4-10.8)
[2018-04-17 11:08] LABS: ALT 31 U/L (12-78); AST 22 U/L (15-37); Albumin 3.8 g/dL (3.4-5.0); Alkaline Phosphatase 130 U/L (46-116); Anion Gap 7.6 mmol/L (3-11); BUN 12 mg/dL (7-18); Bilirubin, Total 0.6 mg/dL (0.2-1.0); CO2 29.4 mmol/L (21.0-32.0); CREATININE 0.79 mg/dL (0.70-1.30); Calcium 9.4 mg/dL (8.5-10.1); Chloride 104 mmol/L (98-107); Glucose 119 mg/dL (70-100); Potassium 3.5 mmol/L (3.5-5.1); Sodium 141 mmol/L (136-145); Total Protein 6.5 g/dL (6.4-8.2)
[2018-04-20] MEDS: Heparin 500 UNITS/5 ML SYRINGE IV (10:30)
[2018-04-20] MEDS: Normal Saline Flush 10 ML SYR IVP (10:30)
[2018-04-20 10:56] LABS: Abs Immature Grans 0.02 k/cumm (0.0-0.09); Absolute Basophil Count 0.01 k/cumm (0.0-0.2); Absolute Eosinophil Count 0.02 k/cumm (0.0-0.7); Absolute Lymphocyte Count 1.45 k/cumm (1.2-3.4); Absolute Monocyte Count 0.36 k/cumm (0.11-0.7); Absolute Neutrophil Count 4.52 k/cumm (1.2-6.7); Basophils % 0.2; Eosinophils % 0.3; HCT 40.5 % (40.0-50.0); HGB 14.1 g/dL (13.5-17.5); Immature Grans % 0.3; Lymphocytes % 22.7; Mean Corp. HGB Concentration 34.8 g/dL (32.0-36.0); Mean Corpuscular Hemoglobin 33.1 pg (27.0-33.0); Mean Corpuscular Volume 95.1 fL (80-95); Mean Platelet Volume 8.6 fL (8.0-11.0); Monocytes % 5.6; Neutrophils % 70.9; Platelet Count 169 x1000/uL (130-400); RBC 4.26 m/cumm (4.50-6.00); RBC Distribution Width 13.8 % (11.8-14.1); White Blood Cell Count 6.38 k/cumm (4.4-10.8)
[2018-04-20 11:11] LABS: ALT 39 U/L (12-78); AST 21 U/L (15-37); Albumin 3.9 g/dL (3.4-5.0); Alkaline Phosphatase 130 U/L (46-116); Anion Gap 9.8 mmol/L (3-11); BUN 13 mg/dL (7-18); Bilirubin, Total 0.6 mg/dL (0.2-1.0); CO2 29.2 mmol/L (21.0-32.0); CREATININE 0.79 mg/dL (0.70-1.30); Calcium 9.1 mg/dL (8.5-10.1); Chloride 101 mmol/L (98-107); Glucose 168 mg/dL (70-100); Potassium 3.2 mmol/L (3.5-5.1); Sodium 140 mmol/L (136-145); Total Protein 6.7 g/dL (6.4-8.2)
[2018-04-24] MEDS: Heparin 500 UNITS/5 ML SYRINGE IV (11:05)
[2018-04-24] MEDS: Normal Saline Flush 10 ML SYR IVP (11:05)
[2018-04-24 11:29] LABS: Abs Immature Grans 0.02 k/cumm (0.0-0.09); Absolute Basophil Count 0.01 k/cumm (0.0-0.2); Absolute Eosinophil Count 0.05 k/cumm (0.0-0.7); Absolute Lymphocyte Count 0.86 k/cumm (1.2-3.4); Absolute Monocyte Count 1.26 k/cumm (0.11-0.7); Absolute Neutrophil Count 4.52 k/cumm (1.2-6.7); Basophils % 0.1; Eosinophils % 0.7; Immature Grans % 0.3; Lymphocytes % 12.8; Mean Corpuscular Volume 94.3 fL (80-95); Mean Platelet Volume 8.4 fL (8.0-11.0); Monocytes % 18.8; Neutrophils % 67.3; Platelet Count 147 x1000/uL (130-400); RBC 4.24 m/cumm (4.50-6.00); RBC Distribution Width 13.7 % (11.8-14.1); White Blood Cell Count 6.72 k/cumm (4.4-10.8)
[2018-04-24 11:41] LABS: ALT 38 U/L (12-78); AST 20 U/L (15-37); Albumin 3.8 g/dL (3.4-5.0); Alkaline Phosphatase 127 U/L (46-116); Anion Gap 8.5 mmol/L (3-11); BUN 10 mg/dL (7-18); CO2 29.5 mmol/L (21.0-32.0); CREATININE 0.96 mg/dL (0.70-1.30); Calcium 9.1 mg/dL (8.5-10.1); Chloride 99 mmol/L (98-107); Glucose 172 mg/dL (70-100); Potassium 3.6 mmol/L (3.5-5.1); Sodium 137 mmol/L (136-145); Total Protein 6.6 g/dL (6.4-8.2)
== END 2018-04-24 23:59 | disposition home or self-care (01) ==
LOC: INF 10:00
PROVIDERS: PCP Pediatrics; Visit Provider Internal Medicine
DX: C91.01 Acute lymphoblastic leukemia, in remission (principal); Z45.2 Encounter for adjustment and management of vascular access device
CPT/HCPCS: 36591; 80053; 86900; 86901; 96523; 85025

== ENCOUNTER 2018-05-25 12:30 | Outpatient (RCR) | payer OTHER, SELFPAY ==
[2018-04-27] MEDS: Normal Saline Flush 10 ML SYR IVP (11:16)
[2018-04-27] MEDS: Heparin 500 UNITS/5 ML SYRINGE IV (11:16)
[2018-04-27 11:29] LABS: Abs Immature Grans 0.01 k/cumm (0.0-0.09); Absolute Basophil Count 0.01 k/cumm (0.0-0.2); Absolute Eosinophil Count 0.14 k/cumm (0.0-0.7); Absolute Lymphocyte Count 0.93 k/cumm (1.2-3.4); Absolute Monocyte Count 0.73 k/cumm (0.11-0.7); Absolute Neutrophil Count 2.25 k/cumm (1.2-6.7); Basophils % 0.2; Eosinophils % 3.4; HCT 41.3 % (40.0-50.0); HGB 14.2 g/dL (13.5-17.5); Immature Grans % 0.2; Lymphocytes % 22.9; Mean Corp. HGB Concentration 34.4 g/dL (32.0-36.0); Mean Corpuscular Hemoglobin 32.3 pg (27.0-33.0); Mean Corpuscular Volume 94.1 fL (80-95); Mean Platelet Volume 8.5 fL (8.0-11.0); Monocytes % 17.9; Neutrophils % 55.4; Platelet Count 153 x1000/uL (130-400); RBC 4.39 m/cumm (4.50-6.00); RBC Distribution Width 13.3 % (11.8-14.1); White Blood Cell Count 4.07 k/cumm (4.4-10.8)
[2018-04-27 11:40] LABS: ALT 50 U/L (12-78); AST 34 U/L (15-37); Albumin 3.7 g/dL (3.4-5.0); Alkaline Phosphatase 123 U/L (46-116); Anion Gap 7.3 mmol/L (3-11); BUN 9 mg/dL (7-18); Bilirubin, Total 0.8 mg/dL (0.2-1.0); CO2 30.7 mmol/L (21.0-32.0); CREATININE 0.92 mg/dL (0.70-1.30); Calcium 9.4 mg/dL (8.5-10.1); Chloride 101 mmol/L (98-107); Glucose 138 mg/dL (70-100); Potassium 3.8 mmol/L (3.5-5.1); Sodium 139 mmol/L (136-145)
[2018-05-11 12:35] LABS: Absolute Basophil Count 0.01 k/cumm (0.0-0.2); Absolute Lymphocyte Count 1.04 k/cumm (1.2-3.4); Absolute Monocyte Count 0.45 k/cumm (0.11-0.7); Absolute Neutrophil Count 2.84 k/cumm (1.2-6.7); Basophils % 0.2; Eosinophils % 2.3; HCT 39.3 % (40.0-50.0); HGB 13.8 g/dL (13.5-17.5); Lymphocytes % 23.4; Mean Corp. HGB Concentration 35.1 g/dL (32.0-36.0); Mean Corpuscular Hemoglobin 33.3 pg (27.0-33.0); Mean Corpuscular Volume 94.7 fL (80-95); Mean Platelet Volume 8.1 fL (8.0-11.0); Monocytes % 10.1; Platelet Count 164 x1000/uL (130-400); RBC 4.15 m/cumm (4.50-6.00); RBC Distribution Width 12.8 % (11.8-14.1); White Blood Cell Count 4.44 k/cumm (4.4-10.8)
[2018-05-11] MEDS: Heparin 500 UNITS/5 ML SYRINGE IV (12:35)
[2018-05-11] MEDS: Normal Saline Flush 10 ML SYR IVP (12:36)
[2018-05-11 12:46] LABS: ALT 32 U/L (12-78); AST 22 U/L (15-37); Albumin 3.9 g/dL (3.4-5.0); Alkaline Phosphatase 122 U/L (46-116); Anion Gap 8.5 mmol/L (3-11); BUN 10 mg/dL (7-18); Bilirubin, Total 0.7 mg/dL (0.2-1.0); CO2 29.5 mmol/L (21.0-32.0); CREATININE 0.81 mg/dL (0.70-1.30); Calcium 9.4 mg/dL (8.5-10.1); Chloride 102 mmol/L (98-107); Glucose 108 mg/dL (70-100); Potassium 3.8 mmol/L (3.5-5.1); Sodium 140 mmol/L (136-145); Total Protein 6.8 g/dL (6.4-8.2)
[2018-05-22] MEDS: Normal Saline Flush 10 ML SYR IVP (11:21)
[2018-05-22] MEDS: Heparin 500 UNITS/5 ML SYRINGE IV (11:21)
[2018-05-22 11:32] LABS: Abs Immature Grans 0.01 k/cumm (0.0-0.09); Absolute Basophil Count 0.01 k/cumm (0.0-0.2); Absolute Eosinophil Count 0.12 k/cumm (0.0-0.7); Absolute Lymphocyte Count 1.31 k/cumm (1.2-3.4); Absolute Monocyte Count 0.37 k/cumm (0.11-0.7); Absolute Neutrophil Count 3.65 k/cumm (1.2-6.7); Basophils % 0.2; Eosinophils % 2.2; HCT 39.5 % (40.0-50.0); HGB 13.9 g/dL (13.5-17.5); Immature Grans % 0.2; Lymphocytes % 23.9; Mean Corp. HGB Concentration 35.2 g/dL (32.0-36.0); Mean Corpuscular Hemoglobin 32.6 pg (27.0-33.0); Mean Corpuscular Volume 92.7 fL (80-95); Mean Platelet Volume 8.3 fL (8.0-11.0); Monocytes % 6.8; Neutrophils % 66.7; Platelet Count 160 x1000/uL (130-400); RBC 4.26 m/cumm (4.50-6.00); RBC Distribution Width 12.4 % (11.8-14.1); White Blood Cell Count 5.47 k/cumm (4.4-10.8)
[2018-05-22 11:44] LABS: ALT 35 U/L (12-78); AST 18 U/L (15-37); Albumin 3.8 g/dL (3.4-5.0); Alkaline Phosphatase 125 U/L (46-116); Anion Gap 8.3 mmol/L (3-11); BUN 11 mg/dL (7-18); Bilirubin, Total 0.9 mg/dL (0.2-1.0); CO2 30.7 mmol/L (21.0-32.0); CREATININE 0.76 mg/dL (0.70-1.30); Calcium 9.2 mg/dL (8.5-10.1); Chloride 102 mmol/L (98-107); Glucose 100 mg/dL (70-100); Potassium 3.6 mmol/L (3.5-5.1); Sodium 141 mmol/L (136-145); Total Protein 6.6 g/dL (6.4-8.2)
[2018-05-25 13:09] LABS: Abs Immature Grans 0.02 k/cumm (0.0-0.09); Absolute Basophil Count 0.01 k/cumm (0.0-0.2); Absolute Eosinophil Count 0.11 k/cumm (0.0-0.7); Absolute Lymphocyte Count 1.06 k/cumm (1.2-3.4); Absolute Monocyte Count 0.57 k/cumm (0.11-0.7); Absolute Neutrophil Count 4.79 k/cumm (1.2-6.7); Basophils % 0.2; Eosinophils % 1.7; HCT 39.8 % (40.0-50.0); HGB 13.9 g/dL (13.5-17.5); Immature Grans % 0.3; Lymphocytes % 16.2; Mean Corp. HGB Concentration 34.9 g/dL (32.0-36.0); Mean Corpuscular Hemoglobin 32.6 pg (27.0-33.0); Mean Corpuscular Volume 93.4 fL (80-95); Mean Platelet Volume 8.7 fL (8.0-11.0); Monocytes % 8.7; Neutrophils % 72.9; Platelet Count 150 x1000/uL (130-400); RBC 4.26 m/cumm (4.50-6.00); RBC Distribution Width 12.8 % (11.8-14.1); White Blood Cell Count 6.56 k/cumm (4.4-10.8)
[2018-05-25 13:20] LABS: ALT 33 U/L (12-78); AST 18 U/L (15-37); Albumin 3.8 g/dL (3.4-5.0); Alkaline Phosphatase 114 U/L (46-116); Anion Gap 9.6 mmol/L (3-11); BUN 13 mg/dL (7-18); Bilirubin, Total 0.9 mg/dL (0.2-1.0); CO2 30.4 mmol/L (21.0-32.0); CREATININE 0.77 mg/dL (0.70-1.30); Calcium 9.6 mg/dL (8.5-10.1); Chloride 102 mmol/L (98-107); Glucose 144 mg/dL (70-100); Potassium 3.8 mmol/L (3.5-5.1); Sodium 142 mmol/L (136-145); Total Protein 6.7 g/dL (6.4-8.2)
[2018-05-25] MEDS: Normal Saline Flush 10 ML SYR IVP (14:08)
== END 2018-05-25 23:59 | disposition home or self-care (01) ==
LOC: INF 12:30
PROVIDERS: PCP Pediatrics; Visit Provider Internal Medicine
DX: C91.01 Acute lymphoblastic leukemia, in remission (principal); Z45.2 Encounter for adjustment and management of vascular access device
CPT/HCPCS: 36591; 80053; 86900; 86901; 85025

== ENCOUNTER 2018-06-20 00:51 | Outpatient (RCR) | payer OTHER, SELFPAY ==
[2018-05-29 11:38] LABS: Abs Immature Grans 0.01 k/cumm (0.0-0.09); Absolute Basophil Count 0.01 k/cumm (0.0-0.2); Absolute Eosinophil Count 0.11 k/cumm (0.0-0.7); Absolute Lymphocyte Count 0.99 k/cumm (1.2-3.4); Absolute Monocyte Count 0.66 k/cumm (0.11-0.7); Absolute Neutrophil Count 3.44 k/cumm (1.2-6.7); Basophils % 0.2; Eosinophils % 2.1; HCT 40.3 % (40.0-50.0); HGB 14.1 g/dL (13.5-17.5); Immature Grans % 0.2; Mean Corpuscular Hemoglobin 32.7 pg (27.0-33.0); Mean Corpuscular Volume 93.5 fL (80-95); Mean Platelet Volume 8.7 fL (8.0-11.0); Monocytes % 12.6; Neutrophils % 65.9; Platelet Count 149 x1000/uL (130-400); RBC 4.31 m/cumm (4.50-6.00); RBC Distribution Width 12.8 % (11.8-14.1); White Blood Cell Count 5.22 k/cumm (4.4-10.8)
[2018-05-29 11:54] LABS: ALT 31 U/L (12-78); AST 19 U/L (15-37); Albumin 3.9 g/dL (3.4-5.0); Alkaline Phosphatase 124 U/L (46-116); BUN 13 mg/dL (7-18); Bilirubin, Total 0.8 mg/dL (0.2-1.0); CREATININE 0.72 mg/dL (0.70-1.30); Calcium 9.6 mg/dL (8.5-10.1); Chloride 103 mmol/L (98-107); Glucose 92 mg/dL (70-100); Sodium 142 mmol/L (136-145)
[2018-05-29] MEDS: Heparin 500 UNITS/5 ML SYRINGE IV (12:05)
[2018-05-29] MEDS: Normal Saline Flush 10 ML SYR IVP (12:05)
[2018-06-01] MEDS: Normal Saline Flush 10 ML SYR IVP (11:16)
[2018-06-01] MEDS: Heparin 500 UNITS/5 ML SYRINGE IV (11:16)
[2018-06-01 11:41] LABS: ALT 30 U/L (12-78); AST 20 U/L (15-37); Albumin 3.7 g/dL (3.4-5.0); Alkaline Phosphatase 124 U/L (46-116); Anion Gap 6.8 mmol/L (3-11); BUN 18 mg/dL (7-18); Bilirubin, Total 0.9 mg/dL (0.2-1.0); CO2 29.2 mmol/L (21.0-32.0); CREATININE 0.94 mg/dL (0.70-1.30); Calcium 8.9 mg/dL (8.5-10.1); Chloride 104 mmol/L (98-107); Glucose 168 mg/dL (70-100); Potassium 3.7 mmol/L (3.5-5.1); Sodium 140 mmol/L (136-145); Total Protein 6.6 g/dL (6.4-8.2)
[2018-06-01 11:42] LABS: Absolute Eosinophil Count 0.07 k/cumm (0.0-0.7); Absolute Lymphocyte Count 0.91 k/cumm (1.2-3.4); Absolute Monocyte Count 0.37 k/cumm (0.11-0.7); Absolute Neutrophil Count 3.14 k/cumm (1.2-6.7); Eosinophils % 1.6; HCT 39.9 % (40.0-50.0); HGB 13.8 g/dL (13.5-17.5); Lymphocytes % 20.3; Mean Corp. HGB Concentration 34.6 g/dL (32.0-36.0); Mean Corpuscular Hemoglobin 32.5 pg (27.0-33.0); Mean Corpuscular Volume 93.9 fL (80-95); Mean Platelet Volume 8.1 fL (8.0-11.0); Monocytes % 8.2; Neutrophils % 69.9; Platelet Count 157 x1000/uL (130-400); RBC 4.25 m/cumm (4.50-6.00); RBC Distribution Width 13.2 % (11.8-14.1); White Blood Cell Count 4.49 k/cumm (4.4-10.8)
[2018-06-05] MEDS: Heparin 500 UNITS/5 ML SYRINGE IV (11:21)
[2018-06-05] MEDS: Normal Saline Flush 10 ML SYR IVP (11:21)
[2018-06-05 11:34] LABS: Abs Immature Grans 0.01 k/cumm (0.0-0.09); Absolute Basophil Count 0.01 k/cumm (0.0-0.2); Absolute Eosinophil Count 0.04 k/cumm (0.0-0.7); Absolute Lymphocyte Count 0.75 k/cumm (1.2-3.4); Absolute Monocyte Count 0.67 k/cumm (0.11-0.7); Absolute Neutrophil Count 2.78 k/cumm (1.2-6.7); Basophils % 0.2; Eosinophils % 0.9; HCT 39.3 % (40.0-50.0); HGB 13.7 g/dL (13.5-17.5); Immature Grans % 0.2; Lymphocytes % 17.6; Mean Corp. HGB Concentration 34.9 g/dL (32.0-36.0); Mean Corpuscular Hemoglobin 32.7 pg (27.0-33.0); Mean Corpuscular Volume 93.8 fL (80-95); Mean Platelet Volume 8.5 fL (8.0-11.0); Monocytes % 15.8; Neutrophils % 65.3; Platelet Count 171 x1000/uL (130-400); RBC 4.19 m/cumm (4.50-6.00); RBC Distribution Width 12.9 % (11.8-14.1); White Blood Cell Count 4.25 k/cumm (4.4-10.8)
[2018-06-05 11:43] LABS: ALT 31 U/L (12-78); AST 19 U/L (15-37); Albumin 3.9 g/dL (3.4-5.0); Alkaline Phosphatase 127 U/L (46-116); BUN 10 mg/dL (7-18); CREATININE 0.86 mg/dL (0.70-1.30); Calcium 9.2 mg/dL (8.5-10.1); Chloride 104 mmol/L (98-107); Glucose 105 mg/dL (70-100); Potassium 3.9 mmol/L (3.5-5.1); Sodium 140 mmol/L (136-145); Total Protein 6.9 g/dL (6.4-8.2)
[2018-06-08] MEDS: Heparin 500 UNITS/5 ML SYRINGE IV (11:54)
[2018-06-08] MEDS: Normal Saline Flush 10 ML SYR IVP (11:54)
[2018-06-08 12:13] LABS: Abs Immature Grans 0.01 k/cumm (0.0-0.09); Absolute Basophil Count 0.01 k/cumm (0.0-0.2); Absolute Eosinophil Count 0.07 k/cumm (0.0-0.7); Absolute Lymphocyte Count 0.85 k/cumm (1.2-3.4); Absolute Monocyte Count 0.54 k/cumm (0.11-0.7); Basophils % 0.2; Eosinophils % 1.5; HCT 39.4 % (40.0-50.0); HGB 13.6 g/dL (13.5-17.5); Immature Grans % 0.2; Lymphocytes % 18.2; Mean Corp. HGB Concentration 34.5 g/dL (32.0-36.0); Mean Corpuscular Hemoglobin 32.4 pg (27.0-33.0); Mean Corpuscular Volume 93.8 fL (80-95); Mean Platelet Volume 8.3 fL (8.0-11.0); Monocytes % 11.5; Neutrophils % 68.4; Platelet Count 179 x1000/uL (130-400); RBC Distribution Width 13.3 % (11.8-14.1); White Blood Cell Count 4.68 k/cumm (4.4-10.8)
[2018-06-08 12:28] LABS: ALT 31 U/L (12-78); AST 17 U/L (15-37); Albumin 3.8 g/dL (3.4-5.0); Alkaline Phosphatase 124 U/L (46-116); Anion Gap 7.9 mmol/L (3-11); BUN 11 mg/dL (7-18); Bilirubin, Total 1.1 mg/dL (0.2-1.0); CO2 29.1 mmol/L (21.0-32.0); CREATININE 0.74 mg/dL (0.70-1.30); Calcium 9.2 mg/dL (8.5-10.1); Chloride 103 mmol/L (98-107); Glucose 101 mg/dL (70-100); Potassium 3.9 mmol/L (3.5-5.1); Sodium 140 mmol/L (136-145); Total Protein 6.6 g/dL (6.4-8.2)
[2018-06-20] MEDS: Heparin 500 UNITS/5 ML SYRINGE IV (12:05)
[2018-06-20] MEDS: Normal Saline Flush 10 ML SYR IVP (12:05)
[2018-06-20 12:36] LABS: Abs Immature Grans 0.02 k/cumm (0.0-0.09); Absolute Basophil Count 0.02 k/cumm (0.0-0.2); Absolute Eosinophil Count 0.07 k/cumm (0.0-0.7); Absolute Lymphocyte Count 1.63 k/cumm (1.2-3.4); Absolute Neutrophil Count 3.75 k/cumm (1.2-6.7); Basophils % 0.3; Eosinophils % 1.1; HCT 40.4 % (40.0-50.0); Immature Grans % 0.3; Lymphocytes % 26.8; Mean Corp. HGB Concentration 34.7 g/dL (32.0-36.0); Mean Corpuscular Hemoglobin 32.2 pg (27.0-33.0); Mean Corpuscular Volume 92.9 fL (80-95); Mean Platelet Volume 8.2 fL (8.0-11.0); Monocytes % 9.9; Neutrophils % 61.6; Platelet Count 149 x1000/uL (130-400); RBC 4.35 m/cumm (4.50-6.00); RBC Distribution Width 12.9 % (11.8-14.1); White Blood Cell Count 6.09 k/cumm (4.4-10.8)
[2018-06-20 12:47] LABS: ALT 47 U/L (12-78); AST 20 U/L (15-37); Albumin 4.1 g/dL (3.4-5.0); Alkaline Phosphatase 143 U/L (46-116); Anion Gap 7.7 mmol/L (3-11); BUN 13 mg/dL (7-18); Bilirubin, Total 0.8 mg/dL (0.2-1.0); CO2 30.3 mmol/L (21.0-32.0); CREATININE 0.69 mg/dL (0.70-1.30); Calcium 9.1 mg/dL (8.5-10.1); Chloride 103 mmol/L (98-107); Glucose 78 mg/dL (70-100); Potassium 3.7 mmol/L (3.5-5.1); Sodium 141 mmol/L (136-145)
== END 2018-06-22 23:59 | disposition home or self-care (01) ==
LOC: INF 00:51
PROVIDERS: PCP Pediatrics; Visit Provider Internal Medicine
DX: C91.01 Acute lymphoblastic leukemia, in remission (principal); Z45.2 Encounter for adjustment and management of vascular access device
CPT/HCPCS: 36591; 80053; 86900; 86901; 85025

== ENCOUNTER 2018-07-20 00:42 | Outpatient (RCR) | payer OTHER, SELFPAY ==
[2018-06-23] MEDS: Normal Saline Flush 10 ML SYR IVP (10:25)
[2018-06-23] MEDS: Heparin 500 UNITS/5 ML SYRINGE IV (10:25)
[2018-06-23 10:46] LABS: Abs Immature Grans 0.01 k/cumm (0.0-0.09); Absolute Eosinophil Count 0.11 k/cumm (0.0-0.7); Absolute Lymphocyte Count 0.78 k/cumm (1.2-3.4); Absolute Monocyte Count 0.44 k/cumm (0.11-0.7); Eosinophils % 2.1; HCT 39.2 % (40.0-50.0); HGB 13.7 g/dL (13.5-17.5); Immature Grans % 0.2; Lymphocytes % 14.6; Mean Corp. HGB Concentration 34.9 g/dL (32.0-36.0); Mean Corpuscular Hemoglobin 32.9 pg (27.0-33.0); Mean Platelet Volume 8.4 fL (8.0-11.0); Monocytes % 8.2; Neutrophils % 74.9; Platelet Count 141 x1000/uL (130-400); RBC 4.17 m/cumm (4.50-6.00); RBC Distribution Width 13.4 % (11.8-14.1); White Blood Cell Count 5.34 k/cumm (4.4-10.8)
[2018-06-23 11:03] LABS: ALT 43 U/L (12-78); AST 19 U/L (15-37); Albumin 3.7 g/dL (3.4-5.0); Alkaline Phosphatase 135 U/L (46-116); Anion Gap 3.8 mmol/L (3-11); BUN 17 mg/dL (7-18); Bilirubin, Total 0.9 mg/dL (0.2-1.0); CO2 31.2 mmol/L (21.0-32.0); Calcium 8.7 mg/dL (8.5-10.1); Chloride 104 mmol/L (98-107); Glucose 154 mg/dL (70-100); Potassium 3.8 mmol/L (3.5-5.1); Sodium 139 mmol/L (136-145); Total Protein 6.3 g/dL (6.4-8.2)
[2018-06-26] MEDS: Normal Saline Flush 10 ML SYR IVP (13:00)
[2018-06-26] MEDS: Heparin 500 UNITS/5 ML SYRINGE IV (13:00)
[2018-06-26 13:30] LABS: Abs Immature Grans 0.01 k/cumm (0.0-0.09); Absolute Eosinophil Count 0.07 k/cumm (0.0-0.7); Absolute Monocyte Count 0.53 k/cumm (0.11-0.7); Absolute Neutrophil Count 2.72 k/cumm (1.2-6.7); Eosinophils % 1.7; HCT 39.5 % (40.0-50.0); HGB 13.9 g/dL (13.5-17.5); Immature Grans % 0.2; Lymphocytes % 21.3; Mean Corp. HGB Concentration 35.2 g/dL (32.0-36.0); Mean Corpuscular Hemoglobin 32.8 pg (27.0-33.0); Mean Corpuscular Volume 93.2 fL (80-95); Mean Platelet Volume 8.3 fL (8.0-11.0); Monocytes % 12.5; Neutrophils % 64.3; Platelet Count 148 x1000/uL (130-400); RBC 4.24 m/cumm (4.50-6.00); RBC Distribution Width 13.3 % (11.8-14.1); White Blood Cell Count 4.23 k/cumm (4.4-10.8)
[2018-06-26 13:44] LABS: ALT 38 U/L (12-78); AST 20 U/L (15-37); Alkaline Phosphatase 128 U/L (46-116); Anion Gap 6.9 mmol/L (3-11); BUN 13 mg/dL (7-18); Bilirubin, Total 1.1 mg/dL (0.2-1.0); CO2 30.1 mmol/L (21.0-32.0); CREATININE 0.73 mg/dL (0.70-1.30); Calcium 9.1 mg/dL (8.5-10.1); Chloride 104 mmol/L (98-107); Glucose 102 mg/dL (70-100); Sodium 141 mmol/L (136-145); Total Protein 6.6 g/dL (6.4-8.2)
[2018-06-29] MEDS: Normal Saline Flush 10 ML SYR IVP (11:31)
[2018-06-29] MEDS: Heparin 500 UNITS/5 ML SYRINGE IV (11:31)
[2018-06-29 11:34] LABS: Abs Immature Grans 0.02 k/cumm (0.0-0.09); Absolute Basophil Count 0.01 k/cumm (0.0-0.2); Absolute Eosinophil Count 0.07 k/cumm (0.0-0.7); Absolute Lymphocyte Count 0.75 k/cumm (1.2-3.4); Absolute Monocyte Count 0.68 k/cumm (0.11-0.7); Absolute Neutrophil Count 7.25 k/cumm (1.2-6.7); Basophils % 0.1; Eosinophils % 0.8; HCT 39.5 % (40.0-50.0); HGB 13.8 g/dL (13.5-17.5); Immature Grans % 0.2; Lymphocytes % 8.5; Mean Corp. HGB Concentration 34.9 g/dL (32.0-36.0); Mean Corpuscular Hemoglobin 32.7 pg (27.0-33.0); Mean Corpuscular Volume 93.6 fL (80-95); Mean Platelet Volume 8.3 fL (8.0-11.0); Monocytes % 7.7; Neutrophils % 82.7; Platelet Count 153 x1000/uL (130-400); RBC 4.22 m/cumm (4.50-6.00); RBC Distribution Width 13.4 % (11.8-14.1); White Blood Cell Count 8.78 k/cumm (4.4-10.8)
[2018-06-29 11:45] LABS: ALT 34 U/L (12-78); AST 19 U/L (15-37); Albumin 3.9 g/dL (3.4-5.0); Alkaline Phosphatase 130 U/L (46-116); Anion Gap 8.3 mmol/L (3-11); BUN 13 mg/dL (7-18); Bilirubin, Total 1.2 mg/dL (0.2-1.0); CO2 28.7 mmol/L (21.0-32.0); CREATININE 0.79 mg/dL (0.70-1.30); Calcium 8.8 mg/dL (8.5-10.1); Chloride 103 mmol/L (98-107); Glucose 140 mg/dL (70-100); Potassium 3.7 mmol/L (3.5-5.1); Sodium 140 mmol/L (136-145); Total Protein 6.4 g/dL (6.4-8.2)
[2018-07-06] MEDS: Normal Saline Flush 10 ML SYR IVP (13:00)
[2018-07-06] MEDS: Heparin 500 UNITS/5 ML SYRINGE IV (13:00)
[2018-07-06 13:23] LABS: Absolute Basophil Count 0.01 k/cumm (0.0-0.2); Absolute Eosinophil Count 0.08 k/cumm (0.0-0.7); Absolute Lymphocyte Count 1.08 k/cumm (1.2-3.4); Absolute Monocyte Count 0.48 k/cumm (0.11-0.7); Absolute Neutrophil Count 2.78 k/cumm (1.2-6.7); Basophils % 0.2; Eosinophils % 1.8; HCT 38.9 % (40.0-50.0); HGB 13.5 g/dL (13.5-17.5); Lymphocytes % 24.4; Mean Corp. HGB Concentration 34.7 g/dL (32.0-36.0); Mean Corpuscular Hemoglobin 32.6 pg (27.0-33.0); Mean Platelet Volume 8.2 fL (8.0-11.0); Monocytes % 10.8; Neutrophils % 62.8; Platelet Count 149 x1000/uL (130-400); RBC 4.14 m/cumm (4.50-6.00); RBC Distribution Width 13.4 % (11.8-14.1); White Blood Cell Count 4.43 k/cumm (4.4-10.8)
[2018-07-06 13:35] LABS: ALT 29 U/L (12-78); AST 20 U/L (15-37); Albumin 3.9 g/dL (3.4-5.0); Alkaline Phosphatase 117 U/L (46-116); Anion Gap 8.8 mmol/L (3-11); BUN 11 mg/dL (7-18); CO2 28.2 mmol/L (21.0-32.0); CREATININE 0.69 mg/dL (0.70-1.30); Calcium 8.7 mg/dL (8.5-10.1); Chloride 103 mmol/L (98-107); Glucose 117 mg/dL (70-100); Sodium 140 mmol/L (136-145); Total Protein 6.6 g/dL (6.4-8.2)
[2018-07-10] MEDS: Normal Saline Flush 10 ML SYR IVP (12:56)
[2018-07-10] MEDS: Heparin 500 UNITS/5 ML SYRINGE IV (12:56)
[2018-07-10 12:59] LABS: Abs Immature Grans 0.01 k/cumm (0.0-0.09); Absolute Basophil Count 0.01 k/cumm (0.0-0.2); Absolute Lymphocyte Count 1.09 k/cumm (1.2-3.4); Absolute Neutrophil Count 3.25 k/cumm (1.2-6.7); Basophils % 0.2; HCT 39.7 % (40.0-50.0); HGB 13.8 g/dL (13.5-17.5); Immature Grans % 0.2; Mean Corp. HGB Concentration 34.8 g/dL (32.0-36.0); Mean Corpuscular Hemoglobin 32.5 pg (27.0-33.0); Mean Corpuscular Volume 93.6 fL (80-95); Mean Platelet Volume 8.3 fL (8.0-11.0); Monocytes % 10.1; Neutrophils % 65.5; Platelet Count 167 x1000/uL (130-400); RBC 4.24 m/cumm (4.50-6.00); RBC Distribution Width 13.3 % (11.8-14.1); White Blood Cell Count 4.96 k/cumm (4.4-10.8)
[2018-07-10 13:12] LABS: ALT 28 U/L (12-78); AST 17 U/L (15-37); Albumin 4.1 g/dL (3.4-5.0); Alkaline Phosphatase 135 U/L (46-116); Anion Gap 6.3 mmol/L (3-11); BUN 12 mg/dL (7-18); Bilirubin, Total 1.1 mg/dL (0.2-1.0); CO2 29.7 mmol/L (21.0-32.0); CREATININE 0.77 mg/dL (0.70-1.30); Chloride 102 mmol/L (98-107); Glucose 99 mg/dL (70-100); Sodium 138 mmol/L (136-145); Total Protein 6.9 g/dL (6.4-8.2)
[2018-07-17] MEDS: Normal Saline Flush 10 ML SYR IVP (11:05)
[2018-07-17] MEDS: Heparin 500 UNITS/5 ML SYRINGE IV (11:05)
[2018-07-17 11:45] LABS: Abs Immature Grans 0.01 k/cumm (0.0-0.09); Absolute Basophil Count 0.01 k/cumm (0.0-0.2); Absolute Eosinophil Count 0.11 k/cumm (0.0-0.7); Absolute Lymphocyte Count 1.03 k/cumm (1.2-3.4); Absolute Monocyte Count 1.02 k/cumm (0.11-0.7); Absolute Neutrophil Count 4.17 k/cumm (1.2-6.7); Basophils % 0.2; Eosinophils % 1.7; HCT 40.4 % (40.0-50.0); HGB 14.1 g/dL (13.5-17.5); Immature Grans % 0.2; Lymphocytes % 16.2; Mean Corp. HGB Concentration 34.9 g/dL (32.0-36.0); Mean Corpuscular Hemoglobin 32.6 pg (27.0-33.0); Mean Corpuscular Volume 93.3 fL (80-95); Mean Platelet Volume 8.5 fL (8.0-11.0); Monocytes % 16.1; Neutrophils % 65.6; Platelet Count 159 x1000/uL (130-400); RBC 4.33 m/cumm (4.50-6.00); RBC Distribution Width 13.3 % (11.8-14.1); White Blood Cell Count 6.35 k/cumm (4.4-10.8)
[2018-07-17 12:12] LABS: ALT 30 U/L (12-78); AST 18 U/L (15-37); Albumin 4.2 g/dL (3.4-5.0); Alkaline Phosphatase 123 U/L (46-116); Anion Gap 9.7 mmol/L (3-11); BUN 12 mg/dL (7-18); Bilirubin, Total 1.5 mg/dL (0.2-1.0); CO2 29.3 mmol/L (21.0-32.0); Calcium 9.3 mg/dL (8.5-10.1); Chloride 101 mmol/L (98-107); Glucose 84 mg/dL (70-100); Potassium 3.6 mmol/L (3.5-5.1); Sodium 140 mmol/L (136-145); Total Protein 6.8 g/dL (6.4-8.2)
[2018-07-20] MEDS: Normal Saline Flush 10 ML SYR IVP (11:49)
[2018-07-20] MEDS: Heparin 500 UNITS/5 ML SYRINGE IV (11:50)
[2018-07-20 11:58] LABS: Absolute Basophil Count 0.01 k/cumm (0.0-0.2); Absolute Eosinophil Count 0.25 k/cumm (0.0-0.7); Absolute Lymphocyte Count 1.27 k/cumm (1.2-3.4); Absolute Monocyte Count 0.55 k/cumm (0.11-0.7); Absolute Neutrophil Count 2.56 k/cumm (1.2-6.7); Basophils % 0.2; Eosinophils % 5.4; HCT 39.8 % (40.0-50.0); HGB 13.7 g/dL (13.5-17.5); Lymphocytes % 27.4; Mean Corp. HGB Concentration 34.4 g/dL (32.0-36.0); Mean Corpuscular Hemoglobin 32.3 pg (27.0-33.0); Mean Corpuscular Volume 93.9 fL (80-95); Mean Platelet Volume 8.4 fL (8.0-11.0); Monocytes % 11.9; Neutrophils % 55.1; Platelet Count 154 x1000/uL (130-400); RBC 4.24 m/cumm (4.50-6.00); RBC Distribution Width 13.5 % (11.8-14.1); White Blood Cell Count 4.64 k/cumm (4.4-10.8)
[2018-07-20 12:10] LABS: ALT 28 U/L (12-78); AST 18 U/L (15-37); Albumin 3.7 g/dL (3.4-5.0); Alkaline Phosphatase 115 U/L (46-116); Anion Gap 8.1 mmol/L (3-11); BUN 11 mg/dL (7-18); Bilirubin, Total 0.9 mg/dL (0.2-1.0); CO2 28.9 mmol/L (21.0-32.0); CREATININE 0.86 mg/dL (0.70-1.30); Calcium 8.8 mg/dL (8.5-10.1); Chloride 103 mmol/L (98-107); Glucose 161 mg/dL (70-100); Potassium 3.5 mmol/L (3.5-5.1); Sodium 140 mmol/L (136-145); Total Protein 6.5 g/dL (6.4-8.2)
== END 2018-07-23 23:59 | disposition home or self-care (01) ==
LOC: INF 00:42
PROVIDERS: PCP Pediatrics; Visit Provider Internal Medicine
DX: C91.01 Acute lymphoblastic leukemia, in remission (principal); Z45.2 Encounter for adjustment and management of vascular access device
CPT/HCPCS: 36591; 80053; 85025

== ENCOUNTER 2018-08-22 01:04 | Outpatient (RCR) | payer OTHER, SELFPAY ==
[2018-07-24] MEDS: Heparin 500 UNITS/5 ML SYRINGE IV (12:40)
[2018-07-24] MEDS: Normal Saline Flush 10 ML SYR IVP (12:40)
[2018-07-24 13:03] LABS: Absolute Basophil Count 0.01 k/cumm (0.0-0.2); Absolute Eosinophil Count 0.16 k/cumm (0.0-0.7); Absolute Lymphocyte Count 0.83 k/cumm (1.2-3.4); Absolute Neutrophil Count 3.37 k/cumm (1.2-6.7); Basophils % 0.2; Eosinophils % 3.4; HCT 38.5 % (40.0-50.0); HGB 13.6 g/dL (13.5-17.5); Lymphocytes % 17.8; Mean Corp. HGB Concentration 35.3 g/dL (32.0-36.0); Mean Corpuscular Hemoglobin 32.8 pg (27.0-33.0); Mean Corpuscular Volume 92.8 fL (80-95); Mean Platelet Volume 8.5 fL (8.0-11.0); Monocytes % 6.4; Neutrophils % 72.2; Platelet Count 159 x1000/uL (130-400); RBC 4.15 m/cumm (4.50-6.00); RBC Distribution Width 13.1 % (11.8-14.1); White Blood Cell Count 4.67 k/cumm (4.4-10.8)
[2018-07-24 13:19] LABS: ALT 29 U/L (12-78); AST 15 U/L (15-37); Albumin 3.7 g/dL (3.4-5.0); Alkaline Phosphatase 117 U/L (46-116); BUN 11 mg/dL (7-18); Bilirubin, Total 0.8 mg/dL (0.2-1.0); CREATININE 0.78 mg/dL (0.70-1.30); Calcium 8.5 mg/dL (8.5-10.1); Chloride 103 mmol/L (98-107); Glucose 157 mg/dL (70-100); Potassium 3.8 mmol/L (3.5-5.1); Sodium 141 mmol/L (136-145); Total Protein 6.4 g/dL (6.4-8.2)
[2018-07-27] MEDS: Heparin 500 UNITS/5 ML SYRINGE IV (11:35)
[2018-07-27] MEDS: Normal Saline Flush 10 ML SYR IVP (11:35)
[2018-07-27 12:07] LABS: Abs Immature Grans 0.01 k/cumm (0.0-0.09); Absolute Basophil Count 0.01 k/cumm (0.0-0.2); Absolute Eosinophil Count 0.18 k/cumm (0.0-0.7); Absolute Lymphocyte Count 0.89 k/cumm (1.2-3.4); Absolute Monocyte Count 0.67 k/cumm (0.11-0.7); Absolute Neutrophil Count 4.88 k/cumm (1.2-6.7); Basophils % 0.2; Eosinophils % 2.7; HCT 39.4 % (40.0-50.0); HGB 13.5 g/dL (13.5-17.5); Immature Grans % 0.2; Lymphocytes % 13.4; Mean Corp. HGB Concentration 34.3 g/dL (32.0-36.0); Mean Corpuscular Hemoglobin 32.2 pg (27.0-33.0); Mean Platelet Volume 8.7 fL (8.0-11.0); Monocytes % 10.1; Neutrophils % 73.4; Platelet Count 141 x1000/uL (130-400); RBC 4.19 m/cumm (4.50-6.00); RBC Distribution Width 13.4 % (11.8-14.1); White Blood Cell Count 6.64 k/cumm (4.4-10.8)
[2018-07-27 12:22] LABS: ALT 27 U/L (12-78); AST 17 U/L (15-37); Albumin 3.7 g/dL (3.4-5.0); Alkaline Phosphatase 116 U/L (46-116); Anion Gap 5.3 mmol/L (3-11); BUN 10 mg/dL (7-18); Bilirubin, Total 0.9 mg/dL (0.2-1.0); CO2 31.7 mmol/L (21.0-32.0); CREATININE 0.79 mg/dL (0.70-1.30); Calcium 8.7 mg/dL (8.5-10.1); Chloride 102 mmol/L (98-107); Glucose 127 mg/dL (70-100); Potassium 3.9 mmol/L (3.5-5.1); Sodium 139 mmol/L (136-145); Total Protein 6.5 g/dL (6.4-8.2)
[2018-07-31] MEDS: Normal Saline Flush 10 ML SYR IVP (11:05)
[2018-07-31] MEDS: Heparin 500 UNITS/5 ML SYRINGE IV (11:05)
[2018-07-31 11:29] LABS: Abs Immature Grans 0.01 k/cumm (0.0-0.09); Absolute Basophil Count 0.01 k/cumm (0.0-0.2); Absolute Eosinophil Count 0.19 k/cumm (0.0-0.7); Absolute Monocyte Count 0.65 k/cumm (0.11-0.7); Absolute Neutrophil Count 4.14 k/cumm (1.2-6.7); Basophils % 0.2; Eosinophils % 3.1; HGB 13.8 g/dL (13.5-17.5); Immature Grans % 0.2; Lymphocytes % 19.4; Mean Corp. HGB Concentration 34.5 g/dL (32.0-36.0); Mean Corpuscular Hemoglobin 32.1 pg (27.0-33.0); Mean Platelet Volume 8.4 fL (8.0-11.0); Monocytes % 10.5; Neutrophils % 66.6; Platelet Count 148 x1000/uL (130-400)
[2018-07-31 11:40] LABS: ALT 34 U/L (12-78); AST 26 U/L (15-37); Albumin 3.8 g/dL (3.4-5.0); Alkaline Phosphatase 121 U/L (46-116); Anion Gap 7.9 mmol/L (3-11); BUN 11 mg/dL (7-18); Bilirubin, Total 1.4 mg/dL (0.2-1.0); CO2 30.1 mmol/L (21.0-32.0); CREATININE 0.72 mg/dL (0.70-1.30); Calcium 8.9 mg/dL (8.5-10.1); Chloride 101 mmol/L (98-107); Glucose 123 mg/dL (70-100); Potassium 3.7 mmol/L (3.5-5.1); Sodium 139 mmol/L (136-145); Total Protein 6.7 g/dL (6.4-8.2)
[2018-08-03] MEDS: Heparin 500 UNITS/5 ML SYRINGE IV (11:11)
[2018-08-03] MEDS: Normal Saline Flush 10 ML SYR IVP (11:12)
[2018-08-03 11:17] LABS: Abs Immature Grans 0.01 k/cumm (0.0-0.09); Absolute Basophil Count 0.01 k/cumm (0.0-0.2); Absolute Eosinophil Count 0.34 k/cumm (0.0-0.7); Absolute Lymphocyte Count 1.12 k/cumm (1.2-3.4); Absolute Monocyte Count 0.77 k/cumm (0.11-0.7); Absolute Neutrophil Count 3.88 k/cumm (1.2-6.7); Basophils % 0.2; Eosinophils % 5.5; HCT 36.2 % (40.0-50.0); HGB 12.5 g/dL (13.5-17.5); Immature Grans % 0.2; Lymphocytes % 18.3; Mean Corp. HGB Concentration 34.5 g/dL (32.0-36.0); Mean Corpuscular Hemoglobin 32.1 pg (27.0-33.0); Mean Corpuscular Volume 93.1 fL (80-95); Mean Platelet Volume 8.2 fL (8.0-11.0); Monocytes % 12.6; Neutrophils % 63.2; Platelet Count 154 x1000/uL (130-400); RBC 3.89 m/cumm (4.50-6.00); RBC Distribution Width 12.8 % (11.8-14.1); White Blood Cell Count 6.13 k/cumm (4.4-10.8)
[2018-08-03 11:42] LABS: ALT 27 U/L (12-78); AST 18 U/L (15-37); Albumin 3.6 g/dL (3.4-5.0); Alkaline Phosphatase 109 U/L (46-116); Anion Gap 6.4 mmol/L (3-11); BUN 12 mg/dL (7-18); CO2 30.6 mmol/L (21.0-32.0); CREATININE 0.72 mg/dL (0.70-1.30); Calcium 8.5 mg/dL (8.5-10.1); Chloride 102 mmol/L (98-107); Glucose 99 mg/dL (70-100); Potassium 3.7 mmol/L (3.5-5.1); Sodium 139 mmol/L (136-145); Total Protein 6.2 g/dL (6.4-8.2)
[2018-08-04 12:33] LABS: Varicella IgG Antibody Positive
[2018-08-08] MEDS: Heparin 500 UNITS/5 ML SYRINGE IV (13:00)
[2018-08-08] MEDS: Normal Saline Flush 10 ML SYR IVP (13:00)
[2018-08-08 13:55] LABS: Abs Immature Grans 0.01 k/cumm (0.0-0.09); Absolute Basophil Count 0.01 k/cumm (0.0-0.2); Absolute Eosinophil Count 0.13 k/cumm (0.0-0.7); Absolute Monocyte Count 0.44 k/cumm (0.11-0.7); Absolute Neutrophil Count 2.72 k/cumm (1.2-6.7); Basophils % 0.2; Eosinophils % 3.2; HCT 39.9 % (40.0-50.0); HGB 13.7 g/dL (13.5-17.5); Immature Grans % 0.2; Lymphocytes % 19.5; Mean Corp. HGB Concentration 34.3 g/dL (32.0-36.0); Mean Corpuscular Hemoglobin 31.8 pg (27.0-33.0); Mean Corpuscular Volume 92.6 fL (80-95); Mean Platelet Volume 8.5 fL (8.0-11.0); Monocytes % 10.7; Neutrophils % 66.2; Platelet Count 200 x1000/uL (130-400); RBC 4.31 m/cumm (4.50-6.00); RBC Distribution Width 13.2 % (11.8-14.1); White Blood Cell Count 4.11 k/cumm (4.4-10.8)
[2018-08-08 14:04] LABS: ALT 26 U/L (12-78); AST 16 U/L (15-37); Albumin 3.9 g/dL (3.4-5.0); Alkaline Phosphatase 120 U/L (46-116); Anion Gap 7.1 mmol/L (3-11); BUN 12 mg/dL (7-18); Bilirubin, Total 0.9 mg/dL (0.2-1.0); CO2 29.9 mmol/L (21.0-32.0); CREATININE 0.81 mg/dL (0.70-1.30); Calcium 9.2 mg/dL (8.5-10.1); Chloride 103 mmol/L (98-107); Glucose 121 mg/dL (70-100); Sodium 140 mmol/L (136-145); Total Protein 6.7 g/dL (6.4-8.2)
[2018-08-22] MEDS: Heparin 500 UNITS/5 ML SYRINGE IV (13:19)
[2018-08-22] MEDS: Normal Saline Flush 10 ML SYR IVP (13:19)
[2018-08-22 13:35] LABS: Abs Immature Grans 0.01 k/cumm (0.0-0.09); Absolute Basophil Count 0.02 k/cumm (0.0-0.2); Absolute Lymphocyte Count 1.94 k/cumm (1.2-3.4); Absolute Monocyte Count 0.89 k/cumm (0.11-0.7); Absolute Neutrophil Count 4.15 k/cumm (1.2-6.7); Basophils % 0.3; Eosinophils % 1.4; HGB 14.5 g/dL (13.5-17.5); Immature Grans % 0.1; Lymphocytes % 27.3; Mean Corp. HGB Concentration 34.5 g/dL (32.0-36.0); Mean Corpuscular Hemoglobin 31.8 pg (27.0-33.0); Mean Corpuscular Volume 92.1 fL (80-95); Mean Platelet Volume 8.3 fL (8.0-11.0); Monocytes % 12.5; Neutrophils % 58.4; Platelet Count 196 x1000/uL (130-400); RBC 4.56 m/cumm (4.50-6.00); White Blood Cell Count 7.11 k/cumm (4.4-10.8)
[2018-08-22 13:47] LABS: ALT 30 U/L (12-78); AST 17 U/L (15-37); Albumin 3.3 g/dL (3.4-5.0); Alkaline Phosphatase 130 U/L (46-116); Anion Gap 7.9 mmol/L (3-11); BUN 13 mg/dL (7-18); Bilirubin, Total 1.3 mg/dL (0.2-1.0); CO2 29.1 mmol/L (21.0-32.0); CREATININE 0.78 mg/dL (0.70-1.30); Chloride 102 mmol/L (98-107); Glucose 94 mg/dL (70-100); Potassium 3.6 mmol/L (3.5-5.1); Sodium 139 mmol/L (136-145)
== END 2018-08-22 23:59 | disposition home or self-care (01) ==
LOC: INF 01:04
PROVIDERS: PCP Pediatrics; Visit Provider Internal Medicine
DX: C91.01 Acute lymphoblastic leukemia, in remission (principal); Z45.2 Encounter for adjustment and management of vascular access device
CPT/HCPCS: 36591; 80053; 86787; 85025

== ENCOUNTER 2018-08-29 02:28 | Outpatient (RCR) | payer OTHER, SELFPAY ==
[2018-08-29] MEDS: Heparin 500 UNITS/5 ML SYRINGE IV (12:20)
[2018-08-29] MEDS: Normal Saline Flush 10 ML SYR IVP (12:20)
[2018-08-29 12:53] LABS: Abs Immature Grans 0.01 k/cumm (0.0-0.09); Absolute Basophil Count 0.01 k/cumm (0.0-0.2); Absolute Eosinophil Count 0.18 k/cumm (0.0-0.7); Absolute Lymphocyte Count 0.79 k/cumm (1.2-3.4); Absolute Neutrophil Count 4.09 k/cumm (1.2-6.7); Basophils % 0.2; Eosinophils % 3.2; HCT 41.2 % (40.0-50.0); Immature Grans % 0.2; Lymphocytes % 14.2; Mean Corpuscular Hemoglobin 31.5 pg (27.0-33.0); Mean Corpuscular Volume 92.8 fL (80-95); Mean Platelet Volume 8.5 fL (8.0-11.0); Neutrophils % 73.2; Platelet Count 164 x1000/uL (130-400); RBC 4.44 m/cumm (4.50-6.00); White Blood Cell Count 5.58 k/cumm (4.4-10.8)
[2018-08-29 13:17] LABS: ALT 26 U/L (12-78); AST 18 U/L (15-37); Albumin 3.8 g/dL (3.4-5.0); Alkaline Phosphatase 119 U/L (46-116); BUN 11 mg/dL (7-18); Bilirubin, Total 1.3 mg/dL (0.2-1.0); CREATININE 0.91 mg/dL (0.70-1.30); Calcium 9.3 mg/dL (8.5-10.1); Chloride 103 mmol/L (98-107); Glucose 133 mg/dL (70-100); Sodium 141 mmol/L (136-145); TSH 0.91 uIU/mL (0.358-3.74); Total Protein 6.8 g/dL (6.4-8.2)
== END 2018-09-22 23:59 | disposition home or self-care (01) ==
LOC: INF 02:28
PROVIDERS: PCP Pediatrics; Visit Provider Internal Medicine
DX: C91.01 Acute lymphoblastic leukemia, in remission (principal); Z45.2 Encounter for adjustment and management of vascular access device
CPT/HCPCS: 36591; 80053; 96523; 84443; 85025

== ENCOUNTER 2018-10-02 01:46 | Outpatient (CLI) | payer OTHER, SELFPAY ==
--- NOTE | 2018-10-02 07:00 | DI.US_ITS ---
SYMPTOM/DIAGNOSIS: ASCITES R18.8, ABDOMINAL ULTRASOUND: Routine examination. Comparison CT scan 10/23/16 The visualized liver parenchyma is normal in appearance. There is no evidence of cholelithiasis. The common bile duct is of normal diameter. The pancreas and spleen appear intact. No renal abnormality is seen. The abdominal aorta is of normal diameter. Normal appearance of IVC. No abdominal ascities is seen sonographically. CONCLUSION: Normal abdominal ultrasound.
--- NOTE | 2018-10-02 07:00 | DI.RAD_ITS ---
SYMPTOM/DIAGNOSIS: PLEURAL EFFUSION J90. CHEST X-RAY: PA and lateral. No priors. Heart size and pulmonary vasculature are within normal limits The tip of the indwelling central venous catheter is in good position at the junction of the superior vena cava and right atrium. The lungs are clear. No pleural effusion or pneumothorax is identified. The bones appear intact. IMPRESSION: No acute pulmonary process. No evidence of a pleural effusion.
== END 2018-10-02 02:06 ==
PROVIDERS: Visit Provider Internal Medicine
DX: R18.8 Other ascites (principal); J90 Pleural effusion, not elsewhere classified
CPT/HCPCS: 71046; 76700

== ENCOUNTER 2018-10-31 08:41 | Outpatient (CLI) | payer OTHER, SELFPAY ==
[2018-10-31 11:51] LABS: Abs Immature Grans 0.01 k/cumm (0.0-0.09); Absolute Basophil Count 0.01 k/cumm (0.0-0.2); Absolute Eosinophil Count 0.23 k/cumm (0.0-0.7); Absolute Lymphocyte Count 1.06 k/cumm (1.2-3.4); Absolute Monocyte Count 0.59 k/cumm (0.11-0.7); Absolute Neutrophil Count 3.33 k/cumm (1.2-6.7); Basophils % 0.2; Eosinophils % 4.4; HCT 41.5 % (40.0-50.0); HGB 14.6 g/dL (13.5-17.5); Immature Grans % 0.2; Lymphocytes % 20.3; Mean Corp. HGB Concentration 35.2 g/dL (32.0-36.0); Mean Corpuscular Hemoglobin 31.5 pg (27.0-33.0); Mean Corpuscular Volume 89.6 fL (80-95); Mean Platelet Volume 8.6 fL (8.0-11.0); Monocytes % 11.3; Neutrophils % 63.6; Platelet Count 171 x1000/uL (130-400); RBC 4.63 m/cumm (4.50-6.00); RBC Distribution Width 11.8 % (11.8-14.1); White Blood Cell Count 5.23 k/cumm (4.4-10.8)
[2018-10-31 12:07] LABS: ALT 14 U/L (12-78); AST 12 U/L (15-37); Albumin 4.1 g/dL (3.4-5.0); Alkaline Phosphatase 144 U/L (46-116); Anion Gap 8.2 mmol/L (3-11); BUN 12 mg/dL (7-18); CO2 28.8 mmol/L (21.0-32.0); CREATININE 0.75 mg/dL (0.70-1.30); Calcium 9.4 mg/dL (8.5-10.1); Chloride 102 mmol/L (98-107); Glucose 94 mg/dL (70-100); LDH 148 U/L (85-227); Potassium 4.1 mmol/L (3.5-5.1); Sodium 139 mmol/L (136-145); Total Protein 7.2 g/dL (6.4-8.2)
== END 2018-10-31 09:01 ==
PROVIDERS: Internal Medicine; PCP Pediatrics; Visit Provider Pediatrics
DX: C91.00 Acute lymphoblastic leukemia not having achieved remission (principal); Z45.2 Encounter for adjustment and management of vascular access device
CPT/HCPCS: 36591; 80053; 83615; 85025

== ENCOUNTER 2018-10-31 11:49 | Outpatient (RCR) | payer OTHER, SELFPAY ==
[2018-10-31] MEDS: Normal Saline Flush 10 ML SYR IVP (13:37)
== END 2018-11-22 23:59 | disposition home or self-care (01) ==
LOC: INF 11:49
PROVIDERS: PCP Pediatrics; Visit Provider Internal Medicine
DX: C91.01 Acute lymphoblastic leukemia, in remission (principal); Z45.2 Encounter for adjustment and management of vascular access device
CPT/HCPCS: 36591

== ENCOUNTER 2018-11-16 01:26 | Outpatient (CLI) | payer OTHER, SELFPAY ==
--- NOTE | 2018-11-16 13:55 | MERGE_ITS ---
*[facility]* *[facility]* [address] [place] [address] Date of study: 11/16/2018 Transthoracic Echocardiography M-mode, complete 2D, complete spectral Doppler, and color Doppler *STUDY CONCLUSIONS* Summary: 1. Left ventricle: The cavity size was normal. Systolic function was normal. The estimated ejection fraction was 60-65%. Diastolic parameters were normal. There was no evidence of elevated ventricular filling pressure by Doppler parameters. 2. Mitral valve: There was mild regurgitation. 3. Right ventricle: The cavity size was normal. Wall thickness was normal. Systolic function was normal. 4. Atrial septum: No defect or patent foramen ovale was identified. 5. Pulmonary arteries: Pulmonary systolic pressure was in the range of 10mm Hg to 20mm Hg. 6. Line: A venous catheter was visualized in the superior vena cava, with its tip in the right atrium. No abnormal features noted. 7. Inferior vena cava: The vessel was patent and normal in size. The respirophasic diameter changes were in the normal range (greater than or equal to 50%), consistent with normal central venous pressure. *PATIENT PRESENTATION* Height: 177.8cm (70in ) S/D Pressure: 97 / 54 Weight: 68kg (149.7lb ) BSA: 1.83m^2 Test start time: 02:00 PM. Test stop time: 03:00 PM. PERFORMING Unknown PERFORMING [facility] TELEPHONE INSTALLER Cristin oHlden, RT (R)(CT), RDCS CONSULTING Radha Bowles ORDERING Radha Bowles REFERRING Radha Bowles *PROCEDURE DATA* Procedure information: This study was interpreted by [facility]. Pertinent images and digital data are archived for permanent storage and are available for subsequent review. Comparison was made to the study of 06/24/2017. Study status: Routine. Transthoracic echocardiography. M-mode, complete 2D, complete spectral Doppler, and color Doppler. A Transthoracic Echocardiogram was performed. Scanning was performed from the parasternal, apical, subcostal, and suprasternal notch acoustic windows. Images were obtained using an [id number] cardiac ultrasound machine. Image quality was good. Study completion: The patient tolerated the procedure well. History: PMH: Fatigue, r53.83. *CARDIAC ANATOMY* Left ventricle: The cavity size was normal. Systolic function was normal. The estimated ejection fraction was 60-65%. The tissue Doppler parameters were normal. Diastolic parameters were normal. There was no evidence of elevated ventricular filling pressure by Doppler parameters. Aortic valve: Trileaflet. Doppler: There was no stenosis. There was no regurgitation. VTI ratio of LVOT to aortic valve: 0.91. Valve area (VTI): 2.6cm^2. Indexed valve area (VTI): 1.4cm^2/m^2. Peak velocity ratio of LVOT to aortic valve: 0.89. Valve area (Vmax): 2.6cm^2. Indexed valve area (Vmax): 1.4cm^2/m^2. Mean velocity ratio of LVOT to aortic valve: 0.72. Valve area (Vmean): 2.1cm^2. Indexed valve area (Vmean): 1.1cm^2/m^2. Mean gradient (S): 3.3mm Hg. Peak gradient (S): 5.2mm Hg. Aorta: Aortic root: The aortic root was normal in size. Ascending aorta: The ascending aorta was normal in size. Mitral valve: Doppler: There was no evidence for stenosis. There was mild regurgitation. Valve area by pressure half-time: 3.3cm^2. Indexed valve area by pressure half-time: 1.8cm^2/m^2. Left atrium: The atrium was normal in size. Atrial septum: No defect or patent foramen ovale was identified. Right ventricle: The cavity size was normal. Wall thickness was normal. Systolic function was normal. Pulmonic valve: Doppler: There was no evidence for stenosis. There was mild regurgitation. Peak gradient (S): 1.6mm Hg. Tricuspid valve: Doppler: There was mild regurgitation. Pulmonary artery: Poorly visualized. Pulmonary systolic pressure was in the range of 10mm Hg to 20mm Hg. Right atrium: The atrium was normal in size. Pericardium: There was no pericardial effusion. Systemic veins: Line: A venous catheter was visualized in the superior vena cava, with its tip in the right atrium. No abnormal features noted. Inferior vena cava: Well visualized. The vessel was patent and normal in size. The respirophasic diameter changes were in the normal range (greater than or equal to 50%), consistent with normal central venous pressure. Baseline ECG: Normal sinus rhythm. Measurements Left ventricle Value 07/04/2017 Reference LV ID, ED, PLAX 4.7 cm 4.6 3.5 - 6.0 LV ID, ES, PLAX 3.2 cm 3.5 2.1 - 4.0 LV PW thickness, ED, PLAX 0.9 cm 0.9 LV end-diastolic volume, 99 ml 94 1-p A2C LV ejection fraction, 1-p 57 % 55 A2C LV end-diastolic volume, 91 ml 101 1-p A4C LV ejection fraction, 1-p 60 % 49 A4C LV e', lateral 0.145 m/sec 0.148 LV E/e', lateral 5 5 LV e', medial 0.105 m/sec 0.112 LV E/e', medial 7 6 LV e', average 0.125 m/sec 0.13 LV E/e', average 6 5 Ventricular septum Value 07/04/2017 Reference IVS thickness, ED, PLAX 1.0 cm 1.0 LVOT Value 07/04/2017 Reference LVOT ID, A-P 1.9 cm 1.9 LVOT area 2.9 cm^2 2.9 LVOT peak velocity, S 1.01 m/sec 0.97 LVOT mean velocity, S 0.63 m/sec 0.77 LVOT VTI, S 20.9 cm 21.1 LVOT peak gradient, S 4.1 mm Hg 3.8 LVOT mean gradient, S 1.9 mm Hg 2.5 Stroke volume (SV), LVOT 60 ml 62 DP Stroke index (SV/bsa), 33 ml/m^2 34 LVOT DP Aortic valve Value 07/04/2017 Reference Aortic valve peak 1.1 m/sec 1.2 velocity, S Aortic valve mean 0.9 m/sec 0.8 velocity, S Aortic valve VTI, S 23.0 cm 21.2 Aortic mean gradient, S 3.3 mm Hg 2.7 Aortic peak gradient, S 5.2 mm Hg VTI ratio, LVOT/AV 0.91 1 Aortic valve area, VTI 2.6 cm^2 2.9 Velocity ratio, peak, 0.89 0.85 LVOT/AV Aortic valve area, peak 2.6 cm^2 2.5 velocity Velocity ratio, mean, 0.72 0.99 LVOT/AV Aortic valve area, mean 2.1 cm^2 2.9 velocity Aortic valve area/bsa, 1.1 cm^2/m^2 1.6 mean velocity Aorta Value 07/04/2017 Reference Aortic root ID, ED 3.0 cm 3.0 Ascending aorta ID, A-P, S 2.7 cm RVOT Value 07/04/2017 Reference RVOT VTI, S 17.8 cm 18.1 Left atrium Value 07/04/2017 Reference LA ID, A-P, ES 2.8 cm 2.6 LA ID/bsa, A-P 1.6 cm/m^2 1.4 <=2.2 LA volume/bsa, ES, 1-p A4C 28 ml/m^2 23 LA volume, ES, 2-p 40 ml 34 LA volume/bsa, ES, 2-p 22 ml/m^2 18 LA/aortic root ratio 0.95 0.87 Mitral valve Value 07/04/2017 Reference Mitral E-wave peak 0.7 m/sec 0.71 velocity Mitral A-wave peak 0.44 m/sec 0.57 velocity Mitral deceleration time (H) 233 ms 208 150 - 230 Mitral pressure half-time 67 ms 60 Mitral E/A ratio, peak 1.61 1.25 Mitral valve area, PHT, DP 3.3 cm^2 3.6 Tricuspid valve Value 07/04/2017 Reference Tricuspid regurg peak 2.1 m/sec 2.4 velocity Tricuspid peak RV-RA 18.3 mm Hg 22.6 gradient Right atrium Value 07/04/2017 Reference RA area, ES, A4C 16.4 cm^2 13.8 8.3 - 19.5 Pulmonic valve Value 07/04/2017 Reference Pulmonic peak gradient, S 1.6 mm Hg 4.5 Pulmonic regurg velocity, 0.64 m/sec ED Legend: (L) and (H) evette values outside specified reference range. I have personally reviewed the images and have reviewed and edited the reported findings. Electronically signed by Polo Bowles MD 11/16/2018 19:07
== END 2018-11-16 01:46 ==
PROVIDERS: PCP Pediatrics; Visit Provider Internal Medicine
DX: R53.83 Other fatigue (principal); C91.01 Acute lymphoblastic leukemia, in remission; I34.0 Nonrheumatic mitral (valve) insufficiency
CPT/HCPCS: 93306

== ENCOUNTER 2019-01-12 07:13 | Outpatient (RCR) | payer OTHER, SELFPAY ==
[2019-01-12] MEDS: Normal Saline Flush 10 ML SYR IVP (10:35)
[2019-01-12 11:03] LABS: Abs Immature Grans 0.01 k/cumm (0.0-0.09); Absolute Basophil Count 0.01 k/cumm (0.0-0.2); Absolute Eosinophil Count 0.25 k/cumm (0.0-0.7); Absolute Lymphocyte Count 1.08 k/cumm (1.2-3.4); Absolute Monocyte Count 0.63 k/cumm (0.11-0.7); Absolute Neutrophil Count 3.99 k/cumm (1.2-6.7); Basophils % 0.2; Eosinophils % 4.2; HCT 40.4 % (40.0-50.0); HGB 13.6 g/dL (13.5-17.5); Immature Grans % 0.2; Lymphocytes % 18.1; Mean Corp. HGB Concentration 33.7 g/dL (32.0-36.0); Mean Corpuscular Hemoglobin 30.2 pg (27.0-33.0); Mean Corpuscular Volume 89.6 fL (80-95); Mean Platelet Volume 8.4 fL (8.0-11.0); Monocytes % 10.6; Neutrophils % 66.7; Platelet Count 185 x1000/uL (130-400); RBC 4.51 m/cumm (4.50-6.00); RBC Distribution Width 12.9 % (11.8-14.1); White Blood Cell Count 5.97 k/cumm (4.4-10.8)
[2019-01-12 11:14] LABS: ALT 17 U/L (16-63); AST 15 U/L (15-37); Albumin 4.1 g/dL (3.4-5.0); Alkaline Phosphatase 119 U/L (46-116); Anion Gap 7.9 mmol/L (3-11); BUN 12 mg/dL (7-18); Bilirubin, Total 1.2 mg/dL (0.2-1.0); CO2 28.1 mmol/L (21.0-32.0); CREATININE 0.77 mg/dL (0.70-1.30); Calcium 8.9 mg/dL (8.5-10.1); Chloride 104 mmol/L (98-107); Glucose 92 mg/dL (70-100); Magnesium 1.9 mg/dL (1.8-2.4); PHOSPHORUS 3.2 mg/dL (2.6-4.7); Potassium 4.1 mmol/L (3.5-5.1); Sodium 140 mmol/L (136-145)
== END 2019-01-22 23:59 | disposition home or self-care (01) ==
LOC: INF 07:13
PROVIDERS: PCP Pediatrics; Visit Provider Internal Medicine
DX: C91.01 Acute lymphoblastic leukemia, in remission (principal); Z45.2 Encounter for adjustment and management of vascular access device
CPT/HCPCS: 36591; 80053; 86900; 86901; 83735; 84100; 85025

== ENCOUNTER 2019-05-10 01:25 | Outpatient (RCR) | payer OTHER, SELFPAY ==
[2019-05-10] MEDS: Normal Saline Flush 10 ML SYR IVP (09:00)
[2019-05-10] MEDS: Heparin 500 UNITS/5 ML SYRINGE IV (09:01)
[2019-05-10 09:20] LABS: Abs Immature Grans 0.01 k/cumm (0.0-0.09); Absolute Basophil Count 0.01 k/cumm (0.0-0.2); Absolute Eosinophil Count 0.34 k/cumm (0.0-0.7); Absolute Lymphocyte Count 2.09 k/cumm (1.2-3.4); Absolute Monocyte Count 0.57 k/cumm (0.11-0.7); Absolute Neutrophil Count 2.49 k/cumm (1.2-6.7); Basophils % 0.2; Eosinophils % 6.2; HCT 40.2 % (40.0-50.0); HGB 13.8 g/dL (13.5-17.5); Immature Grans % 0.2 %; Lymphocytes % 37.9; Mean Corp. HGB Concentration 34.3 g/dL (32.0-36.0); Mean Corpuscular Hemoglobin 30.8 pg (27.0-33.0); Mean Corpuscular Volume 89.7 fL (80-95); Mean Platelet Volume 8.1 fL (8.0-11.0); Monocytes % 10.3; Neutrophils % 45.2; Platelet Count 195 x1000/uL (130-400); RBC 4.48 m/cumm (4.50-6.00); White Blood Cell Count 5.51 k/cumm (4.4-10.8)
== END 2019-05-25 23:59 | disposition home or self-care (01) ==
LOC: INF 01:25
PROVIDERS: PCP Pediatrics; Visit Provider Internal Medicine
DX: C91.01 Acute lymphoblastic leukemia, in remission (principal); Z45.2 Encounter for adjustment and management of vascular access device
CPT/HCPCS: 36591; 85025

== ENCOUNTER 2019-10-11 03:54 | Outpatient (RCR) | payer OTHER, SELFPAY ==
[2019-10-10 13:53] LABS: Absolute Basophil Count 0.01 k/cumm (0.0-0.2); Absolute Eosinophil Count 0.12 k/cumm (0.0-0.7); Absolute Lymphocyte Count 1.39 k/cumm (1.2-3.4); Absolute Monocyte Count 0.37 k/cumm (0.11-0.7); Absolute Neutrophil Count 2.25 k/cumm (1.2-6.7); Basophils % 0.2; Eosinophils % 2.9; HCT 40.5 % (40.0-50.0); HGB 13.9 g/dL (13.5-17.5); Lymphocytes % 33.6; Mean Corp. HGB Concentration 34.3 g/dL (32.0-36.0); Mean Corpuscular Hemoglobin 31.7 pg (27.0-33.0); Mean Corpuscular Volume 92.3 fL (80-95); Monocytes % 8.9; Neutrophils % 54.4; Platelet Count 172 x1000/uL (130-400); RBC 4.39 m/cumm (4.50-6.00); RBC Distribution Width 13.1 % (11.8-14.1); White Blood Cell Count 4.14 k/cumm (4.4-10.8)
== END 2019-10-23 23:59 | disposition home or self-care (01) ==
LOC: INF 03:54
PROVIDERS: PCP Pediatrics; Visit Provider Pediatrics
DX: C91.00 Acute lymphoblastic leukemia not having achieved remission (principal)
CPT/HCPCS: 36415; 85025

== ENCOUNTER 2020-04-11 04:47 | Outpatient (RCR) | payer OTHER, SELFPAY ==
[2020-04-11 15:34] LABS: C Diff PCR Negative (Negative)
[2020-04-14 21:31] LABS: Calprotectin <15.6 mcg/g
[2020-04-15 16:23] LABS: Helicobacter pylori Ag, Feces Negative (Negative)
== END 2020-04-24 23:59 | disposition home or self-care (01) ==
LOC: INF 04:47
PROVIDERS: PCP Internal Medicine; Visit Provider Nurse Practitioner Family
DX: K21.9 Gastro-esophageal reflux disease without esophagitis; R10.30 Lower abdominal pain, unspecified; K58.0 Irritable bowel syndrome with diarrhea; Z45.2 Encounter for adjustment and management of vascular access device
CPT/HCPCS: 36415; 87329; 87338; 87493; 83993